=== PATIENT | female | born 1960 | race African-American/Black ===

== ENCOUNTER 2016-08-07 16:48 | Observation (INO) | payer OTHER ==
[~2016-08-07] VITALS: Ht 162.6 cm; Wt 68.2 kg
[~2016-08-07 16:48] MED LIST: ACET325T9 PO; AMLO1TAB78 PO; AMLO1TAB95 PO; ASPI81TA9 PO; ATOR40TA PO; CLOP75TA PO; ESTR0.5T PO; ESTR0.62 PO; ESTR1TAB39 PO; ESTR2TAB PO; HYDR-971 PO; LISI20TA PO; METO25TA4 PO; MULT1CAP15 PO; NEBI10TA3 PO; NEBI5TAB2 PO; SULF1TAB24 PO; TICA90TA PO; [UNRECOGNIZED DRUG - CODE] OD
--- NOTE | 2016-08-07 17:08 | EKG ---
[address] [address] Test Date: 2016-08-07 Test Time: 17:04:03 Pat Name: CAROL JOSHI Department: Room: Gender: F [employer] Supervisor: HALEY : 1960 Requested By: CLEMENT KRAFT Order Number: [id number] Reading MD: J Luis Georges Measurements Intervals [place] Rate: 67 P: 42 IL: 196 QRS: 54 QRSD: 82 T: 68 QT: 388 QTc: 413 Interpretive Statements SINUS RHYTHM Electronically Signed On 08-12-2016 9:35:38 CDT by J Luis Georges
[2016-08-07 17:26] LABS: BASO # 0.1 x10^3/uL (0.0-0.2); BASO % 1 % (0-3); EOS # 0.3 x10^3/uL (0.0-0.7); EOS % 3 % (0-3); HEMATOCRIT 40.6 % (36.0-47.0); HEMOGLOBIN 13.2 g/dL (12.0-15.5); LYMPH # 2.6 x10^3/uL (1.0-4.8); LYMPH % 34 % (24-48); MEAN CORPUSCULAR HEMOGLOBIN 31 pg (25-35); MEAN CORPUSCULAR HGB CONC 33 g/dL (31-37); MEAN CORPUSCULAR VOLUME 94 fL (79-100); MONO # 0.5 x10^3/uL (0.0-1.1); MONO % 6 % (0-9); NEUT # 4.2 x10^3uL (1.8-7.7); NEUT % 55 % (31-73); PLATELET COUNT 276 x10^3/uL (140-400); WHITE BLOOD COUNT 7.6 x10^3/uL (4.0-11.0)
[2016-08-07] MEDS ORDERED: ASPIRIN 81 MG TAB.CHEW PO ONE (17:30)
[2016-08-07 17:46] LABS: ALBUMIN 3.8 g/dL (3.4-5.0); CALCIUM 9.3 mg/dL (8.5-10.1); CREATININE 0.9 mg/dL (0.6-1.0); DIRECT BILIRUBIN 0.1 mg/dL (0.0-0.2); GFR 78.4; POTASSIUM 3.8 mmol/L (3.5-5.1); TOTAL BILIRUBIN 0.4 mg/dL (0.2-1.0); TOTAL PROTEIN 7.3 g/dL (6.4-8.2)
--- NOTE | 2016-08-07 17:51 | PHYS DOC ---
Past History Past Medical History: CAD, Hypertension, Other Past Surgical History: Hysterectomy, Other Smoking: Cigarettes, Cigar, Quit Greater Than 1 Year Alcohol Use: None Drug Use: Marijuana Adult General Chief Complaint Chief Complaint: CHEST PAIN HPI HPI 56-year-old female with a history of 2 stent placements who presents the emergency department today with chest pain. She describes as a pressure that is nonradiating. It is moderate to mild. It did improve with the aspirin she received immediately upon arrival. She denies cough fevers chills. She denies unilateral leg swelling hemoptysis personal or family history of blood clotting disorders. She denies nausea or diaphoresis. Review of systems is negative for fevers cough abdominal pain nausea vomiting. All other review of systems is negative unless otherwise noted in history of present illness. Review of Systems Review of Systems SEE ABOVE. Current Medications Current Medications Current Medications Medications (Trade) Dose Ordered Sig/Jenifer Start Time Stop Time Status Last Admin Dose Admin Aspirin (Children'S Aspirin) 324 mg 1X ONCE 08/07/16 17:30 08/07/16 17:31 DC 08/07/16 17:21 324 MG Allergies Allergies Allergies Coded Allergies Type Severity Reaction Last Updated Verified ticagrelor Allergy Unknown Rash 07/14/14 No Physical Exam Physical Exam Constitutional: Well developed, well nourished, no acute distress, non-toxic appearance. HENT: Normocephalic, atraumatic, bilateral external ears normal, oropharynx moist, no oral exudates, nose normal. [] Eyes: PERRLA, EOMI, conjunctiva normal, no discharge. [] Neck: Normal range of motion, no tenderness, supple, no stridor. Cardiovascular:Heart rate regular rhythm, no murmur Lungs & Thorax: Bilateral breath sounds clear to auscultation [] Abdomen: Bowel sounds normal, soft, no tenderness, no masses, no pulsatile masses. Skin: Warm, dry, no erythema, no rash. [] Back: No tenderness, no CVA tenderness. Extremities: No tenderness, no cyanosis, no clubbing, ROM intact, no edema. [] Neurologic: Alert and oriented X 3, normal motor function, normal sensory function, no focal deficits noted. [] Psychologic: Affect normal, judgement normal, mood normal. [] Current Patient Data Vital Signs Vital Signs Date Time Temp Pulse Resp B/P Pulse Ox O2 Delivery O2 Flow Rate FiO2 08/07/16 17:12 98.2 71 18 100 Room Air Lab Results Laboratory Tests Test 08/07/16 17:10 White Blood Count 7.6x10^3/uL (4.0-11.0) Red Blood Count 4.30x10^6/uL (3.50-5.40) Hemoglobin 13.2g/dL (12.0-15.5) Hematocrit 40.6% (36.0-47.0) Mean Corpuscular Volume 94fL (79-100) Mean Corpuscular Hemoglobin 31pg (25-35) Mean Corpuscular Hemoglobin Concent 33g/dL (31-37) Red Cell Distribution Width 14.0% (11.5-14.5) Platelet Count 276x10^3/uL (140-400) Neutrophils (%) (Auto) 55% (31-73) Lymphocytes (%) (Auto) 34% (24-48) Monocytes (%) (Auto) 6% (0-9) Eosinophils (%) (Auto) 3% (0-3) Basophils (%) (Auto) 1% (0-3) Neutrophils # (Auto) 4.2x10^3uL (1.8-7.7) Lymphocytes # (Auto) 2.6x10^3/uL (1.0-4.8) Monocytes # (Auto) 0.5x10^3/uL (0.0-1.1) Eosinophils # (Auto) 0.3x10^3/uL (0.0-0.7) Basophils # (Auto) 0.1x10^3/uL (0.0-0.2) Troponin I Quantitative < 0.017ng/mL (0-0.055) EKG EKG EKG shows sinus rhythm with a regular rate. ST segments are congruent. Not consistent with acute coronary syndrome. [] Radiology/Procedures Radiology/Procedures [] Course & Med Decision Making Course & Med Decision Making Pertinent Labs and Imaging studies reviewed. (See chart for details) [] 56-year-old female presenting to the emergency department today with chest pain. EKG is not suggestive of ischemic changes. The patient was given aspirin and nitroglycerin in the emergency department. Lipase was elevated just above the reference range of normal. The patient denies nausea vomiting abdominal pain or back pain. Otherwise blood work was obtained. Troponin negative. Given the patient's significant risk of history of stents the patient was then admitted for further evaluation workup and care to Dr. Sandoval. Cecilia Disclaimer Cecilia Disclaimer This chart was dictated in whole or in part using Voice Recognition software in a busy, high-work load, and often noisy Emergency Department environment. It may contain unintended and wholly unrecognized errors or omissions. Departure Departure: Impression: Primary Impression: CHEST PAIN, UNSPECIFIED Disposition: ADMITTED INPATIENT Condition: STABLE Referrals: GUILLAUME MARCANO APRN (PCP) CLEMENT KRAFT MD Aug 07, 2016 17:51
[2016-08-07] MEDS ORDERED: NITROGLYCERIN SUBLINGUAL 0.4 MG BOTTLE OF 25. SL ONE (18:00)
[2016-08-07] MEDS ORDERED: MORPHINE SULFATE 2 MG/ML DISP.SYRIN. IV PRN (18:00)
[2016-08-07] MEDS ORDERED: ONDANSETRON PF 4 MG/2 ML VIAL. IV PRN (18:00)
[2016-08-07 18:17] LABS: AMPHETAMINE/METHAMPHETAMINE NEG (NEG); BARBITURATES NEG (NEG); BENZODIAZEPINES NEG (NEG); CANNABINOIDS POS (NEG); COCAINE NEG (NEG); METHADONE NEG (NEG); OPIATES NEG (NEG); PHENCYCLIDINE NEG (NEG)
[2016-08-07 21:00] VITALS: BP 150/79
[2016-08-07] MEDS ORDERED: RANO500T2 PO (21:22)
[2016-08-07] MEDS ORDERED: OLME40TA PO (21:27)
[2016-08-07] MEDS ORDERED: AMLO10TA2 PO (21:27)
--- NOTE | 2016-08-07 21:56 | ACF ---
Admission Criteria Forms CARDIOLOGY [facility] Clinical Indications for Admission to Inpatient Care ( Place 'X' for any and all applicable criteria): Hospital admission is needed for appropriate care of the patient because of ANY ONE of the following (1): [ ] I. Hemodynamic instability as indicated by ALL of the following (1)(2)(3) (4)(5) [ ]a) Vital signs or other findings not as expected for chronic patient condition or baseline [ ]b) Instability indicated by ANY ONE of the following: [ ]i) Hypotension [ ]ii) Symptomatic Tachycardia unresponsive to treatment ( e.g., analgesia, fluids, sedation as indicated) [ ]iii) Inadequate perfusion indicated by ANY ONE of the following: [ ] 1) Lactic acidosis (> 2 mmol/L) [ ] 2) New abnormal capillary refill (> 3 seconds) [ ] 3) Reduced urine output [ ] 4) New altered mental status [ ]iv) Orthostatic vital sign changes unresponsive to treatment (e.g., fluids) [ ]v) IV inotropic or vasopressor medication required to maintain adequate blood pressure or perfusion [ ] II. Severe heart failure as indicated by ANY ONE of the following(17)(18) [ ]a) Respiratory distress [ ]b) Hypotension [ ]c) Anasarca (refractory to outpatient therapy) [ ]d) Cardiac arrhythmias of immediate concern [ ]e) Myocardial ischemia [ ] III. Cardiac arrhythmias or findings of immediate concern indicated by ANY ONE of the following (19)(20): [ ] a) Heart rhythms that are inherently dangerous or unstable indicated by ANY ONE of the following (21)(22)(23): [ ] i) Resuscitated ventricular fibrillation or cardiac arrest [ ] ii) Ventricular escape rhythm [ ] iii) Sustained ventricular tachycardia (30 seconds or more of ventricular rhythm at greater than 100 beats per minute) [ ] iv) Nonsustained ventricular tachycardia and ANY ONE of the following: [ ] 1) Suspected cardiac ischemia as cause or consequence of ventricular tachycardia [ ] 2) In setting of acute myocarditis [ ] b) Unstable cardiac conduction defects indicated by ANY ONE of the following(23)(24)(25) [ ] i) Type II second-degree atrioventricular block [ ]ii) Third-degree atrioventricular block [ ]iii) New-onset left bundle branch block with suspected myocardial ischemia [ ]c) Any heart rhythm and ANY ONE of the following (21)(22)(26)(27) (28) [ ] i) Continuous long-term ECG monitoring needed (e.g., initiation of drug requiring monitoring for more than 24 hours) [ ] ii) Patient has automatic implanted cardioverter defibrillator that is repeatedly firing, malfunctioning, or in need of immediate adjustment of settings beyond the scope of ambulatory or observation care [ ]d) Heart rhythms of concern due to ANY ONE of the following: [ ] i) Hypotension [ ] ii) Respiratory distress [ ] iii) Association with other significant symptoms (e.g., bradycardia with syncope or ongoing dizziness, supraventricular tachycardia with chest pain (14)(15)(17) [ ] IV. Monitoring for cardiac contusion beyond the scope of observation care needed [A](30)(31)(32) [ ] V. Surgical or device complication (e.g., valve replacement complication , pacemaker dysfunction) (35)(41)(44)(45)(46) [ ] . Inpatient palliative care needed. [B](49) Also use Inpatient Palliative Care Criteria [ ] VII. Nonbacterial thrombotic (marantic) endocarditis (36)(43)(47)(48) [X] VIII. Cardiology condition, symptom, or finding for which emergency and observation care has failed or are not considered appropriate. [ ] IX. Acute valvular disease requiring inpatient as indicated by ANY ONE of the following (41) [ ]a) Acute valvular regurgitation (42) [ ]b) Noninfectious valvulitis (43) [ ]c) Obstructive valve thrombosis [ ]d) Paravalvular leak [ ]e) Other significant valvular disorder remaining after emergency or observation level of care (as appropriate) [ ]X. Pericardial disease requiring inpatient treatment as indicated by ANY ONE of the following (33)(34)(35)(36)(37) [ ]a) Suspected tamponade (38)(39)(40) [ ]b) Hemopericardium [ ]c) Other significant pericardial disorder remaining after emergency or observation level of care (as appropriate) [ ] XI. Cardiac ischemia beyond scope of emergency and observation care. [ ] XII. Hypertension requiring inpatient treatment as indicated by ANY ONE of the following (6)(7)(8) [ ]a) SBP greater than 220 mm Hg or DBP greater than 120 mmHg despite treatment [ ]b) SBP greater than 140 mm Hg or DBP greater than 100 mm Hg with evidence of acute end organ damage as indicated by ANY ONE of the following [ ] i) Encephalopathy [ ] ii) Acute renal failure as indicated by new onset of ANY ONE of the following (9)(10)(11)(12)(13) [ ]1) 3-fold rise in serum creatinine from baseline [ ]2) Serum creatinine greater than 4 mg/dL ( 354 micromoles/L) with acute rise greater than 0.5 mg/dL (44.2 micromoles/L) [ ]3) Reduction of more than 75% in estimated glomerular filtration rate from baseline [ ]4) Estimated glomerular filtration rate less than 35 mL/min/1.73m2 (0.59 mL/sec/1.73m2) in child up to 18 years of age [ ]5) Cessation of urine output indicated by ALL of the following [ ]A. Adequate volume status [ ]B. Inadequate urine output as indicated by ANY ONE of the following [ ]a. Urine output less than 0.3 mL/kg/hr for 24 hours [ ]b. Anuria (urine output less than 0.1 mL/kg/hr) for 12 hours [ ] iii) Aortic dissection [ ] iv) Myocardial Ischemia [ ] v) Left ventricular heart failure [ ]vi) Retinal Hemorrhage [ ]vii) Other significant finding [ ]c) Hypertension in child requiring inpatient treatment as indicated by ALL of the following(14)(15)(16) [ ] i) Outpatient treatment not effective, not available, or not appropriate [ ]ii) SBP or DBP greater than 95th percentile for age [ ]iii) Evidence of acute end organ damage as indicated by ANY ONE of the following [ ]1) Altered mental status [ ]2) Acute renal failure as indicated by new onset of ANY ONE of the following(9)(10)(11)(12)(13) [ ]A. 3-fold rise in serum creatinine from baseline [ ]B. Serum creatinine greater than 4 mg/dL (354 micromoles/L) with acute rise greater than 0.5 mg/dL (44.2 micromoles/L) [ ]C. Reduction of more than 75% in estimated glomerular filtration rate from baseline [ ]D. Estimated glomerular filtration rate less than 35 mL/min/1.73m2 (0.59 mL/sec/1.73m2) in child up to 18 years of age [ ]E. Cessation of urine output indicated by ALL of the following [ ]a. Adequate volume status [ ]b. Inadequate urine output as indicated by ANY ONE of the following [ ]i) Urine output less than 0.3 mL/kg/hr for 24 hours [ ]ii) Anuria ( urine output less than 0.1 mL/kg/hr) for 12 hours [ ]3) Severe headache [ ]4) Visual disturbance [ ]5) Retinal hemorrhage [ ]6) Other significant finding [ ]XIII. Complications of transplanted heart indicated by ANY ONE of the following(61): [ ]a) Acute graft rejection requiring inpatient management (eg, intravenous immunosuppression)(62)(63) [ ]b) Acute graft heart failure indicated by ANY ONE of the following(64): [ ]i) Hemodynamic instability [ ]ii) Cardiac arrhythmias of immediate concern [ ]iii) Pulmonary edema that is very severe (eg, mechanical ventilation needed, imminent or likely, need for 100% oxygen to keep oxygen saturation above 90%) [ ]iv) Pulmonary edema that is persistent as indicated by ALL of the following: [ ]1) New need for oxygen therapy to keep oxygen saturation above 90% (or increased FiO2 need from baseline) [ ]2) Has not improved sufficiently with emergency department or observation care IV diuretics or other heart failure treatments[E] [ ]v) Altered mental status that is severe or persistent [ ]vi) Increased creatinine (new on laboratory test) with reduction of more than 50% in estimated glomerular filtration rate from baseline [ ]vii) Progressively (ongoing) rising creatinine (known from past laboratory test) with reduction of more than 25% in estimated glomerular filtration rate from baseline [ ]viii) Acute renal failure [ ]ix) Acute peripheral ischemia (eg, examination shows pulseless, cool, mottled, or cyanotic extremity) [ ]x) Pulmonary artery catheter monitoring needed [ ]xi) Other sign or symptom of heart failure requiring inpatient treatment (ie, too severe or not responsive to outpatient and observation care treatment) [ ]c) Infection requiring inpatient management (eg, Hemodynamic instability, need for intravenous antimicrobial treatment)(66)(67)(68)(69)(70) [ ]d) Cardiac allograft vasculopathy requiring inpatient management ( eg evidence of cardiac ischemia)(71) [ ]e) Other complication of transplanted heart (eg, stroke, severe pulmonary hypertension, severe valvular dysfunction) requiring inpatient management(72) The original [facility] content created by [facility] has been revised. The portions of the content which have been revised are identified through the use of italic text or in bold, and [facility] has neither reviewed nor approved the modified material. All other unmodified content is copyright [facility]. Please see references footnoted in the original [facility] edition 2016 Admission Criteria Met?: Yes ASHLEY MARQUEZ Aug 07, 2016 21:56
[2016-08-07 22:40] VITALS: BP 134/76
[2016-08-08 05:32] LABS: BASO # 0.1 x10^3/uL (0.0-0.2); BASO % 1 % (0-3); EOS # 0.3 x10^3/uL (0.0-0.7); EOS % 4 % (0-3); HEMATOCRIT 43.3 % (36.0-47.0); LYMPH # 2.7 x10^3/uL (1.0-4.8); LYMPH % 41 % (24-48); MEAN CORPUSCULAR HEMOGLOBIN 31 pg (25-35); MEAN CORPUSCULAR HGB CONC 33 g/dL (31-37); MEAN CORPUSCULAR VOLUME 95 fL (79-100); MONO # 0.5 x10^3/uL (0.0-1.1); MONO % 7 % (0-9); NEUT # 3.2 x10^3uL (1.8-7.7); NEUT % 48 % (31-73); PLATELET COUNT 269 x10^3/uL (140-400); RED BLOOD COUNT 4.58 x10^6/uL (3.50-5.40); RED CELL DISTRIBUTION WIDTH 13.9 % (11.5-14.5); WHITE BLOOD COUNT 6.7 x10^3/uL (4.0-11.0)
[2016-08-08 05:42] LABS: CALCIUM 8.9 mg/dL (8.5-10.1); CREATININE 0.8 mg/dL (0.6-1.0); GFR 89.8; POTASSIUM 3.7 mmol/L (3.5-5.1)
[2016-08-08 05:55] VITALS: BP 136/76
--- NOTE | 2016-08-08 07:15 | RAD ---
Exam: AP portable chest. History: Chest pain. Comparison: 03/17/2015. Findings: The heart and mediastinal structures are within normal limits for size. Lungs are without infiltrate. No pneumothorax or pleural effusion is appreciated. Aortic atherosclerosis is seen. Left greater than right shoulder degeneration is noted. Impression: 1. No acute cardiopulmonary process.
[2016-08-08] MEDS ORDERED: LOSARTAN 50 MG TABLET. PO SCH (09:00)
[2016-08-08] MEDS ORDERED: CLOPIDOGREL BISULFATE 75 MG TABLET PO SCH (09:00)
[2016-08-08] MEDS ORDERED: AMLODIPINE BESYLATE 10 MG TABLET PO SCH (09:00)
[2016-08-08] MEDS ORDERED: METOPROLOL TART IMMED RELEASE 50 MG TABLET PO SCH (09:00)
[2016-08-08] MEDS ORDERED: RANOLAZINE 500 MG TAB.ER.12H PO SCH (09:00)
[2016-08-08] MEDS ORDERED: ASPIRIN ENTERIC COATED 81 MG TABLET.DR. PO SCH (09:00)
--- NOTE | 2016-08-08 09:17 | PDOC2 ---
CONSULT Date of Admission DATE: 08/08/16 TIME: 09:06 Reason for Consult: chest pain Problem List Problems Medical Problems: (1) R07.9 Status: Acute History of Present Illness Ms Jaramillo is a 54 year old female with a history of coronary artery disease with prior stents to LAD and LCX. Her last cardiac cath in September of last year revealed no significant stenosis and widely patent stents. She had a negative nuclear stress test in January of last year. She has additional history of resistant hypertension, hyperlipidemia and lupus. She presents with left sided chest pressure that started about 7am yesterday. She reports the pain is non radiating, non exertional, lasted all day and was constant. She got some relief with aspirin but no resolution. No change with exertion, deep inspiration, position changes. She denies any recent illness, fever, chills or cough. She does report chest wall tenderness noted last night in ED when palpated. She reports resolution of discomfort last night after NTG in the ED. She reports associated lightheadedness and nausea but denies dyspnea or diaphoresis. She reports lightheadedness occurred while sitting but did worsen on standing. She denies syncope. She denies any congestive symptoms, edema or problems with functional capacity. Past Medical History 01/23/16 MPI Conclusion 1. No evidence of stress induced EKG changes. 2. Normal myocardial perfusion noted at stress/rest. 3. Normal EF at > 65% 4. Low risk study 5. Subdiaphragmatic artifact noted on rest images. 10/07/13 cardiac cath FINDINGS: 1. Hemodynamics: Slightly elevated left ventricular end-diastolic pressure of 18 mmHg. No pullback gradient across the aortic valve. 2. Left ventriculography: Normal left ventricle systolic function with ejection fraction estimated at 65-70%. No significant mitral regurgitation seen. 3. Coronary angiography: A). The left main coronary artery arose from the left sinus of Valsalva, gave rise to the left anterior descending and the left circumflex arteries and did not show any significant stenosis. B). The left anterior descending artery showed widely patent previously placed stent in the proximal to midsegment. C). The left circumflex artery was a large caliber vessel, was dominant and showed a widely patent previously placed stent in the mid-distal segment. D). The right coronary artery was a small and nondominant vessel that did not show any significant stenosis. Conclusion 1. No significant coronary artery stenosis with widely patent previously placed stents in the left anterior descending and left circumflex arteries. 2. Normal left ventricle systolic function with ejection fraction estimated at 65-70%. 3. No mitral regurgitation. No aortic stenosis. Past Medical History coronary artery disease, hypertension, hyperlipidemia, lupus erythematosus Past Surgical History Status post hysterectomy and bilateral salpingo-oophorectomy. Status post left ear surgery. Status post section. Family History premature coronary disease in mother Social History prior smoker, no ETOH, occasional marijuana use Current Medications Current Medications Aspirin (Children'S Aspirin) 324 mg 1X ONCE PO Last administered on 08/07/16 17:21; Start 08/07/16 at 17:30; Stop 08/07/16 at 17:31; Status DC Nitroglycerin (Nitrostat) 0.4 mg 1X ONCE SL Last administered on 08/07/16 21: 57; Start 08/07/16 at 18:00; Stop 08/07/16 at 18:01; Status DC Ondansetron HCl (Zofran) 4 mg PRN Q4HRS PRN IV NAUSEA/VOMITING; Start 08/07/16 at 18:00; Stop 08/08/16 at 17:59 Morphine Sulfate (Morphine 2mg Syringe) 2 mg PRN Q2HR PRN IV PAIN; Start at 18:00; Stop 08/08/16 at 17:59 Amlodipine Besylate (Norvasc) 10 mg DAILY PO ; Start 08/08/16 at 09:00 Aspirin (Aspirin Enteric Coated) 81 mg DAILY PO ; Start 08/08/16 at 09:00 Clopidogrel Bisulfate (Plavix) 75 mg DAILY PO ; Start 08/08/16 at 09:00 Ranolazine (Ranexa) 500 mg DAILY PO ; Start 08/08/16 at 09:00 Metoprolol Tartrate (Lopressor) 50 mg BID PO ; Start 08/08/16 at 09:00 Losartan Potassium (Cozaar) 100 mg DAILY PO ; Start 08/08/16 at 09:00 Active Scripts Active Reported Benicar (Olmesartan Medoxomil) 40 Mg Tablet 40 Mg PO DAILY LAST DOSE GIVEN: DATE: TIME: NEXT DOSE DUE: DATE: TIME: Amlodipine Besylate 10 Mg Tablet 10 Mg PO DAILY LAST DOSE GIVEN: DATE: TIME: NEXT DOSE DUE: DATE: TIME: Ranexa (Ranolazine) 500 Mg Tab.er.12h 500 Mg PO DAILY LAST DOSE GIVEN: DATE: TIME: NEXT DOSE DUE: DATE: TIME: Bystolic (Nebivolol Hcl) 10 Mg Tablet 10 Mg PO DAILY LAST DOSE GIVEN: DATE: TIME: NEXT DOSE DUE: DATE: TIME: Clopidogrel (Clopidogrel Bisulfate) 75 Mg Tablet 75 Mg PO DAILY LAST DOSE GIVEN: DATE: TIME: NEXT DOSE DUE: DATE: TIME: Aspirin Ec (Aspirin) 81 Mg Tablet.dr 81 Mg PO DAILY LAST DOSE GIVEN: DATE: TIME: NEXT DOSE DUE: DATE: TIME: Allergies: Coded Allergies: ticagrelor (Unverified Allergy, Unknown, Rash, 07/14/14) Review of System as per HPI or negative General: Alert, Oriented X3, Cooperative, No acute distress HEENT: Atraumatic, EOMI, Mucous membr. moist/pink Lungs: Clear to auscultation, Normal air movement Heart: Regular rate, Normal S1, Normal S2, Other (no significant murmurs, no gallops, clicks or rubs) Abdomen: Normal bowel sounds, Soft, No tenderness Extremities: No clubbing, No cyanosis, No edema, Normal pulses Neuro: Normal speech, Strength at 5/5 X4 ext Psych/Mental Status: Mental status NL, Mood NL VITALS Vital Signs Date Time Temp Pulse Resp B/P Pulse Ox O2 Delivery O2 Flow Rate FiO2 08/08/16 05:55 98.3 66 18 136/76 97 Room Air Labs Laboratory Tests Test 08/07/16 17:10 08/07/16 17:35 08/07/16 22:45 08/08/16 05:15 White Blood Count 7.6x10^3/uL (4.0-11.0) 6.7x10^3/uL (4.0-11.0) Red Blood Count 4.30x10^6/uL (3.50-5.40) 4.58x10^6/uL (3.50-5.40) Hemoglobin 13.2g/dL (12.0-15.5) 14.0g/dL (12.0-15.5) Hematocrit 40.6% (36.0-47.0) 43.3% (36.0-47.0) Mean Corpuscular Volume 94fL (79-100) 95fL (79-100) Mean Corpuscular Hemoglobin 31pg (25-35) 31pg (25-35) Mean Corpuscular Hemoglobin Concent 33g/dL (31-37) 33g/dL (31-37) Red Cell Distribution Width 14.0% (11.5-14.5) 13.9% (11.5-14.5) Platelet Count 276x10^3/uL (140-400) 269x10^3/uL (140-400) Neutrophils (%) (Auto) 55% (31-73) 48% (31-73) Lymphocytes (%) (Auto) 34% (24-48) 41% (24-48) Monocytes (%) (Auto) 6% (0-9) 7% (0-9) Eosinophils (%) (Auto) 3% (0-3) 4% (0-3) Basophils (%) (Auto) 1% (0-3) 1% (0-3) Neutrophils # (Auto) 4.2x10^3uL (1.8-7.7) 3.2x10^3uL (1.8-7.7) Lymphocytes # (Auto) 2.6x10^3/uL (1.0-4.8) 2.7x10^3/uL (1.0-4.8) Monocytes # (Auto) 0.5x10^3/uL (0.0-1.1) 0.5x10^3/uL (0.0-1.1) Eosinophils # (Auto) 0.3x10^3/uL (0.0-0.7) 0.3x10^3/uL (0.0-0.7) Basophils # (Auto) 0.1x10^3/uL (0.0-0.2) 0.1x10^3/uL (0.0-0.2) Sodium Level 143mmol/L (136-145) 141mmol/L (136-145) Potassium Level 3.8mmol/L (3.5-5.1) 3.7mmol/L (3.5-5.1) Chloride Level 106mmol/L (98-107) 106mmol/L (98-107) Carbon Dioxide Level 29mmol/L (21-32) 26mmol/L (21-32) Anion Gap 8 (6-14) 9 (6-14) Blood Urea Nitrogen 14mg/dL (7-20) 11mg/dL (7-20) Creatinine 0.9mg/dL (0.6-1.0) 0.8mg/dL (0.6-1.0) Estimated GFR (Cockcroft-Gault) 78.4 89.8 Glucose Level 97mg/dL (70-99) 108mg/dL (70-99) Calcium Level 9.3mg/dL (8.5-10.1) 8.9mg/dL (8.5-10.1) Total Bilirubin 0.4mg/dL (0.2-1.0) Direct Bilirubin 0.1mg/dL (0.0-0.2) Aspartate Amino Transf (AST/SGOT) 13U/L (15-37) Alanine Aminotransferase (ALT/SGPT) 16U/L (14-59) Alkaline Phosphatase 92U/L (46-116) Troponin I Quantitative < 0.017ng/mL (0-0.055) < 0.017ng/mL (0-0.055) < 0.017ng/mL (0-0.055) AC-Mmv-Q-Type Natriuretic Peptide 68pg/mL (0-124) Total Protein 7.3g/dL (6.4-8.2) Albumin 3.8g/dL (3.4-5.0) Lipase 467U/L (73-393) 231U/L (73-393) Urine Opiates Screen Neg (NEG) Urine Methadone Screen Neg (NEG) Urine Barbiturates Neg (NEG) Urine Phencyclidine Screen Neg (NEG) Urine Amphetamine/Methamphetamine Neg (NEG) Urine Benzodiazepines Screen Neg (NEG) Urine Cocaine Screen Neg (NEG) Urine Cannabinoids Screen Pos (NEG) Urine Ethyl Alcohol Neg (NEG) Images EKG - sinus rhythm, delayed R wave progression, non specific abn. CXR - no acute disease Assessment/Plan 1. Prolonged chest pain, atypical with normal cardiac enzymes - continue medical therapy. will check echo for LV function and if no significant changes , could follow up outpatient. 2. CAD with prior PCI/Stent to LAD - no restenosis by cath in 2013. normal MPI in January 2016. 3. resistant hypertension - controlled on current medical therapy. resume home medications. Problems: ROSI BROOKS PUBLIC HEALTH ASSISTANT Aug 08, 2016 09:17
[2016-08-08 10:32] VITALS: BP 134/85
[2016-08-08 14:28] VITALS: BP 138/89
--- NOTE | 2016-08-08 15:50 | CARD ---
APPROVED REPORT EXAM: Two-dimensional and M-mode echocardiogram with Doppler and color Doppler. Other Information Quality : GoodHR: 65bpm Rhythm : NSR INDICATION Cardiac Disease: CAD Chest Pain 2D DIMENSIONS RVDd2.6 (2.9-3.5cm)Left Atrium(2D)3.8 (1.6-4.0cm) IVSd1.3 (0.7-1.1cm)Aortic Root(2D)2.8 (2.0-3.7cm) LVDd4.5 (3.9-5.9cm)LVOT Diameter2.2 (1.8-2.4cm) PWd1.4 (0.7-1.1cm)LVDs2.9 (2.5-4.0cm) FS (%) 34.7 %SV59.4 ml LVEF(%)64.1 (>50%) Aortic Valve AoV Peak Festus.118.3cm/sAoV VTI24.7cm AO Peak GR.5.6mmHgLVOT Peak Festus.98.5cm/s LVOT VTI 21.10cmAO Mean GR.3mmHg AVELINO (VMAX)3.81wk4OAT (VTI)3.38cm2 Mitral Valve MV E Dztlmecd15.4cm/sMV E Peak Gr.4mmHg MV DECEL SORM236ywBE A Hwvbhznm44.2cm/s MV E Mean Gr.2mmHgE/A Ratio0.8 MV A Sbhepjek922mm Pulmonary Valve PV Peak Iwhxnkfh81.6cm/sPV Peak Grad.3mmHg Tricuspid Valve TR P. Xavutgiw985sk/sTR Peak Gr.25mmHg Pulmonary Vein S1 Tmnomfrh43.1cm/sD2 Ubyhkofj43.8cm/s LEFT VENTRICLE The left ventricle is normal size. There is moderate concentric left ventricular hypertrophy. The lef t ventricular systolic function is normal and the ejection fraction is within normal range. The Eject ion Fraction is 60-65%. There is normal LV segmental wall motion. Transmitral Doppler flow pattern is Grade I-abnormal relaxation pattern. RIGHT VENTRICLE The right ventricle is normal size. There is normal right ventricular wall thickness. The right ventr icular systolic function is normal. ATRIA The left atrium is mildly dilated. The right atrium size is normal. The interatrial septum is intact with no evidence for an atrial septal defect or patent foramen ovale as noted on 2-D or Doppler imagi ng. AORTIC VALVE The aortic valve is normal in structure and function. Doppler and Color Flow revealed no significant aortic regurgitation. There is no significant aortic valvular stenosis. MITRAL VALVE There is no evidence of mitral valve prolapse. There is no mitral valve stenosis. Doppler and Color F low revealed trace mitral regurgitation. TRICUSPID VALVE Doppler and Color Flow revealed mild tricuspid regurgitation. The pulmonary artery systolic pressure is estimated at 28 mmHg. There is no pulmonary hypertension. PULMONIC VALVE Doppler and Color Flow revealed no pulmonic valvular regurgitation. There is no pulmonic valvular neyda nosis. GREAT VESSELS The aortic root is normal in size. The ascending aorta is normal in size. The pulmonary artery is nor mal. The IVC is normal in size and collapses >50% with inspiration. PERICARDIAL EFFUSION There is no evidence of significant pericardial effusion. Critical Notification Critical Value: No <Conclusion> The left ventricular systolic function is normal and the ejection fraction is within normal range. Th e Ejection Fraction is 60-65%. There is normal LV segmental wall motion.
--- NOTE | 2016-08-08 16:08 | HP ---
ADMIT DATE: 08/08/2016 HISTORY OF PRESENT ILLNESS: The patient is a 56-year-old -[place] female patient, who basically came to the Emergency Room complaining of chest pain. She described as a pressure that is nonradiating, mild to moderate, it improves with aspirin. She received immediately upon arrival. She denied any cough, fever, chills. She denied any unilateral leg swelling, hemoptysis. family history of blood clots. Although, she denied any nausea or vomiting. The patient is known to have coronary artery disease with stent deployment and has had her first cardiac enzyme done was normal and she was admitted to do 2 more sets of cardiac enzymes, check her fasting lipid profile and consult the pin inserter. PAST MEDICAL HISTORY: Significant for hypertension, coronary artery disease status post PTCA and stent deployment, hyperlipidemia. PAST SURGICAL HISTORY: Significant for PTCA and stent deployment, total abdominal hysterectomy, bilateral salpingo-oophorectomy, left ear surgery and esophagogastroduodenoscopy versus bronchoscopy. ALLERGIES: She is allergic to TICAGRELOR. MEDICATIONS: She is currently on following medications: She is on amlodipine besylate 10 mg once a day, aspirin 81 mg once a day, Plavix 75 mg once a day, Bystolic 10 mg once a day, olmesartan medoxomil 40 mg once a day and Ranexa 500 mg daily. FAMILY HISTORY: She has 2 brothers, both have hypertension. She has also 5 sisters and seems that hypertension is at least 2 sisters have that and one has schizophrenia. Her father at age of 76 because of head and neck cancer as well as prostate cancer. Mother had end-stage renal disease and at the age of 74 when she quit hemodialysis. SOCIAL HISTORY: She is , has 1 daughter. She quit smoking in 06/04/2016. She drinks alcohol very occasionally, use marijuana more frequently. She works as a early childhood education worker at . REVIEW OF SYSTEMS: The patient denied any blurring of vision, cataract, glaucoma or macular degeneration. Did have problem with her left ear. Denied any nosebleeds, stuffy nose or postnasal drip. Denied any sore throat, sore tongue, toothache, hoarseness of voice or difficulty swallowing. Denied any hematemesis, melena or hematochezia. Denied any dysuria, frequency or hematuria. Did complain of chest pain. Denied any shortness of breath, orthopnea, paroxysmal nocturnal dyspnea. Denied any cough, phlegm or hemoptysis. Denied any chills, rigors or fever. PHYSICAL EXAMINATION: GENERAL: On arrival to the Emergency Room, she looked well and was clearly in no apparent respiratory distress. No pallor, jaundice, cyanosis or thyromegaly. No jugular venous distention. No limb edema. VITAL SIGNS: Her heart rate was 71, blood pressure was , temperature was 98.2, respiratory rate was 18 and oxygen saturation was 100% on room air. HEAD, EYES, EAR, NOSE AND THROAT: Showed normocephalic, atraumatic. NECK: Supple. HEART: Showed normal first and second heart sounds with no gallop, rub or murmur. CHEST: Clear to auscultation. No crepitation or rhonchi. ABDOMEN: Distended, soft, nontender. NEUROLOGIC: She is awake, alert, responding appropriately. Her cranial nerves intact. EXTREMITIES: She moves extremities without difficulty. LABORATORY DATA: Showed a serum sodium 143, potassium 3.8, chloride 106, bicarbonate 29, anion gap of 8, BUN 14, creatinine 0.9, estimated GFR was 78 mL per minute. Her glucose was 97. Calcium was 9.3. Total bilirubin, AST, ALT, alkaline phosphatase were normal. Her first set of cardiac enzymes show troponin I to be less than 0.017. Total protein was 7.3, albumin 3.8. Her serum lipase was high at 467. Her toxic screen was essentially negative. She apparently has had an EKG, which showed that she was in sinus rhythm with a regular rate, ST segment are congruent, not consistent with acute coronary syndrome. PLAN: The patient was admitted to do 2 more sets of cardiac enzymes, check her fasting lipid profile, consult the pin inserter. GISELE HUTCHINS MD DR: ALF/stanley JOB#: [id number] / [id number]
--- NOTE | 2016-08-08 18:59 | DS ---
DATE OF DISCHARGE: 08/08/2016 HOSPITAL COURSE: The patient was admitted yesterday with chest pain and has had 3 sets of cardiac enzymes that were negative. She was seen in consultation by the Cardiology team and has had an echocardiogram that was done; however, they recommended the patient can safely be discharged to be followed in their office as an outpatient. PHYSICAL EXAMINATION: GENERAL: When I saw her this afternoon, she looked well and was clearly in no apparent respiratory distress, pale, but no jaundice, cyanosis or thyromegaly. No jugular venous distention. No limb edema. VITAL SIGNS: Her heart rate was 68, blood pressure 138/89, temperature was 98.3, respiratory rate 20 and oxygen saturation was 98%. The rest of clinical examination is unremarkable. LABORATORY DATA: This morning showed a serum sodium 141, potassium 3.7, chloride 106, bicarbonate 26, anion gap of 9, BUN 11, creatinine 0.8, estimated GFR was 90 mL per minute. Her glucose was 108. Calcium was 8.9. Her serum triglycerides were 141. Total cholesterol was 227, LDL cholesterol was 110, VLDL cholesterol was 28 and HDL cholesterol was 89 and ratio was 2. Her first lipase was 467. It was repeated this morning. It was 231. The patient denied any abdominal pain. FINAL DISCHARGE DIAGNOSES: Chest pain, atypical with normal cardiac enzymes, to continue medical treatment; coronary artery disease with prior PTCA and stent deployment, she had a normal ____ in 01/2016; hypertension, well controlled on current therapy, asymptomatic; acute pancreatitis, resolved. Her serum lipase is down to 230. GISELE HUTCHINS MD DR: ALF/stanley JOB#: [id number] / [id number]
== END 2016-08-08 15:35 | disposition home or self-care (01) ==
LOC: ER 16:48 → 1 SOUTH 18:39
PROVIDERS: ADMIT Internal Medicine; ATTEND Internal Medicine
DX: R07.89 Other chest pain (principal); I25.10 Atherosclerotic heart disease of native coronary artery without angina pectoris; I10 Essential (primary) hypertension; E78.5 Hyperlipidemia, unspecified; F12.90 Cannabis use, unspecified, uncomplicated; L93.0 Discoid lupus erythematosus; Z95.5 Presence of coronary angioplasty implant and graft; Z87.891 Personal history of nicotine dependence; Z90.710 Acquired absence of both cervix and uterus; Z81.8 Family history of other mental and behavioral disorders; Z82.49 Family history of ischemic heart disease and other diseases of the circulatory system
CPT/HCPCS: 36415; 71010; 80048; 80061; 80076; 83690; 83880; 84484; 85027; 93005; 93306; 99285; G0378; G0481; G0379

== ENCOUNTER 2017-01-22 07:33 | Observation (INO) | payer OTHER ==
[~2017-01-22] VITALS: Ht 170.2 cm; Wt 66.2 kg
[~2017-01-22 07:33] MED LIST changes: +AMLO10TA2 PO; -AMLO1TAB78 PO; +AMLO1TAB97 PO; +ASPI-612 PO; -ASPI81TA9 PO; +OLME40TA12 PO; +RANO500T2 PO
--- NOTE | 2017-01-22 07:40 | PHYS DOC ---
Past History Past Medical History: CAD, Hypertension, Other Past Surgical History: Hysterectomy, Other Smoking: Cigarettes, Cigar, Quit Greater Than 1 Year Alcohol Use: None Drug Use: Marijuana Adult General Chief Complaint Chief Complaint: presyncope HPI HPI Patient is a 56 year old [place] female who presents with dizziness/ presyncope. 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 She states she felt dizzy but did not have any vertigo type symptoms. She denies any nausea, vomiting, abdominal or chest discomfort. She denies any chest pain or shortness of breath. She states she has a history of coronary disease and had cardiac stents placed 4 years ago and takes Plavix. Which she had her stents placed she states she had chest pains at that time and she denies any chest discomfort today. She does have a previous smoking history but stopped in May 2016. Review of Systems Review of Systems Constitutional: Denies fever or chills [] Eyes: Denies change in visual acuity, redness, or eye pain [] HENT: Denies nasal congestion or sore throat [] Respiratory: Denies cough or shortness of breath [] Cardiovascular: No additional information not addressed in HPI [] GI: Denies abdominal pain, nausea, vomiting, bloody stools or diarrhea [] : Denies dysuria or hematuria [] Musculoskeletal: Denies back pain or joint pain [] Integument: Denies rash or skin lesions [] Neurologic: Denies headache, focal weakness or sensory changes [] Endocrine: Denies polyuria or polydipsia [] Allergies Allergies Allergies Coded Allergies Type Severity Reaction Last Updated Verified ticagrelor Allergy Unknown Rash 07/14/14 No Physical Exam Physical Exam Constitutional: Well developed, well nourished, no acute distress, non-toxic appearance. [] HENT: Normocephalic, atraumatic, bilateral external ears normal, oropharynx moist, no oral exudates, nose normal. [] Eyes: PERRLA, EOMI, conjunctiva normal, no discharge. [] Neck: Normal range of motion, no tenderness, supple, no stridor. [] Cardiovascular:Heart rate regular rhythm, no murmur [] Lungs & Thorax: Bilateral breath sounds clear to auscultation [] Abdomen: Bowel sounds normal, soft, no tenderness, no masses, no pulsatile masses. [] Skin: Warm, dry, no erythema, no rash. [] Back: No tenderness, no CVA tenderness. [] Extremities: No tenderness, no cyanosis, no clubbing, ROM intact, no edema. [] Neurologic: Alert and oriented X 3, normal motor function, normal sensory function, no focal deficits noted. [] Psychologic: Affect normal, judgement normal, mood normal. [] EKG EKG EKG shows sinus rhythm 3-[address] elevations, T-wave inversions noted in aVL, normal axis, QTC 460 ms, as interpreted by me. Radiology/Procedures Radiology/[place] [address] IMAGING REPORT Signed PATIENT: CAROL JOSHI ACCOUNT: [id number] : 1960 LOCATION: ER AGE: 56 SEX: F EXAM STATUS: REG ER ORD. PHYSICIAN: RAMIREZ ZIMMERMAN MD REASON: syncope PROCEDURE: PORTABLE CHEST 1V Portable chest, 01/22/2017: History: Syncope Comparison is made to a study from 08/07/2016. The left ventricle is mildly prominent. The pulmonary vascularity is normal. No pulmonary infiltrates are seen. There is no evidence of pleural fluid. Scattered degenerative changes are present in the spine. There is moderate arthritic change at the left shoulder. IMPRESSION: No acute cardiopulmonary abnormality is detected. DICTATED AND SIGNED BY: KAREN DAILEY MD DATE: 01/22/17 0807 CC: RAMIREZ ZIMMERMAN MD; GUILLAUME MARCANO APRN ~ Impressions: Presyncope/dizziness Coronary artery disease with stents Hypertension Marijuana abuse Course & Med Decision Making Course & Med Decision Making Pertinent Labs and Imaging studies reviewed. (See chart for details) Patient presents for dizziness/presyncope. Neuro exam is nonacute. She does not have any chest pain or other concerning symptoms. Her EKG, chest x-ray and labs all nonacute at this time. She does have a history of stents in the past. She received 1 L fluid which helped slightly but she still feels dizzy. We'll admit and repeat cardiac enzymes. Spoke with Dr. Sandoval who accepts the patient for admission at this time. Interim orders have been written. Dragon Disclaimer Dragon Disclaimer This chart was dictated in whole or in part using Voice Recognition software in a busy, high-work load, and often noisy Emergency Department environment. It may contain unintended and wholly unrecognized errors or omissions. Departure Departure: Impression: Primary Impression: Pre-syncope Disposition: ADMITTED INPATIENT Admitting Physician: Doris Sandoval Condition: STABLE Referrals: GUILLAUME MARCANO APRN (PCP) RAMIREZ ZIMMERMAN MD Jan 22, 2017 07:40
--- NOTE | 2017-01-22 07:51 | EKG ---
[address] [address] Test Date: 2017-01-22 Test Time: 07:46:22 Pat Name: CAROL JOSHI Department: Room: Gender: F Gaming Floor Supervisor: MONIQUE : 1960 Requested By: RAMIREZ ZIMMERMAN Order Number: [id number] Reading MD: Measurements Intervals [place] Rate: 63 P: 51 NM: 194 QRS: 68 QRSD: 78 T: 71 QT: 404 QTc: 416 Interpretive Statements SINUS RHYTHM NO SPECIFIC ECG ABNORMALITIES RI6.01 Compared to ECG 08/07/2016 17:04:03 No significant changes
--- NOTE | 2017-01-22 08:11 | RAD ---
Portable chest, 01/22/2017: History: Syncope Comparison is made to a study from 08/07/2016. The left ventricle is mildly prominent. The pulmonary vascularity is normal. No pulmonary infiltrates are seen. There is no evidence of pleural fluid. Scattered degenerative changes are present in the spine. There is moderate arthritic change at the left shoulder. IMPRESSION: No acute cardiopulmonary abnormality is detected.
[2017-01-22] MEDS ORDERED: IV NORMAL SALINE 1,000ML 1,000 ML IV ONE (08:15)
[2017-01-22 08:18] LABS: BARBITURATES NEG (NEG); BENZODIAZEPINES NEG (NEG); CANNABINOIDS POS (NEG); COCAINE NEG (NEG); METHADONE NEG (NEG); OPIATES NEG (NEG); PHENCYCLIDINE NEG (NEG)
[2017-01-22 08:19] LABS: CLARITY,URINE CLEAR; COLOR,URINE YELLOW
[2017-01-22 08:20] LABS: BACTERIA,URINE 0 /HPF (0-FEW); BILIRUBIN,URINE NEG (NEG); GLUCOSE,URINE NEG (NEG); NITRITE,URINE NEG (NEG); RBC,URINE 0 /HPF (0-2); SQUAMOUS EPITHELIAL CELL,UR OCC /LPF; UROBILINOGEN,URINE 0.2 mg/dL (0.2 mg/dL); WBC,URINE RARE /HPF (0-4)
[2017-01-22 08:21] LABS: AMPHETAMINE/METHAMPHETAMINE NEG (NEG)
[2017-01-22 08:24] LABS: BASO % 1 % (0-3); EOS # 0.2 x10^3/uL (0.0-0.7); EOS % 3 % (0-3); HEMATOCRIT 39.1 % (36.0-47.0); HEMOGLOBIN 13.2 g/dL (12.0-15.5); LYMPH % 32 % (24-48); MEAN CORPUSCULAR HEMOGLOBIN 31 pg (25-35); MEAN CORPUSCULAR HGB CONC 34 g/dL (31-37); MEAN CORPUSCULAR VOLUME 92 fL (79-100); MONO # 0.4 x10^3/uL (0.0-1.1); MONO % 6 % (0-9); NEUT # 3.7 x10^3uL (1.8-7.7); NEUT % 59 % (31-73); PLATELET COUNT 292 x10^3/uL (140-400); RED BLOOD COUNT 4.24 x10^6/uL (3.50-5.40); RED CELL DISTRIBUTION WIDTH 13.3 % (11.5-14.5); WHITE BLOOD COUNT 6.4 x10^3/uL (4.0-11.0)
[2017-01-22 08:35] LABS: PREG TEST PT QUAL NEGATIVE (NEG)
[2017-01-22 09:07] LABS: ALBUMIN 3.8 g/dL (3.4-5.0); ALK PHOS 90 U/L (46-116); ALT (SGPT) 20 U/L (14-59); ANION GAP 5 (6-14); AST (SGOT) 17 U/L (15-37); BLOOD UREA NITROGEN 11 mg/dL (7-20); CALCIUM 8.9 mg/dL (8.5-10.1); CARBON DIOXIDE 29 mmol/L (21-32); CHLORIDE 106 mmol/L (98-107); CREATINE KINASE 114 U/L (26-192); CREATININE 0.7 mg/dL (0.6-1.0); DIRECT BILIRUBIN 0.1 mg/dL (0.0-0.2); GFR 104.7; GLUCOSE 114 mg/dL (70-99); LIPASE 181 U/L (73-393); POTASSIUM 3.8 mmol/L (3.5-5.1); SODIUM 140 mmol/L (136-145); TOTAL BILIRUBIN 0.4 mg/dL (0.2-1.0); TOTAL PROTEIN 7.6 g/dL (6.4-8.2)
[2017-01-22] MEDS ORDERED: ONDANSETRON PF 4 MG/2 ML VIAL. IV PRN (09:15)
[2017-01-22 11:50] VITALS: BP 135/78
--- NOTE | 2017-01-22 13:02 | PDOC2 ---
ROSI BROOKS CONTENT ANALYST 01/22/17 1302: CONSULT Date of Admission DATE: 01/22/17 TIME: 12:45 Reason for Consult: presyncope Problem List Problems Medical Problems: (1) Pre-syncope Status: Acute History of Present Illness Ms Jaramillo is a 54 year old female with a history of coronary artery disease with prior stents to LAD and LCX. Her last cardiac cath revealed no significant stenosis and widely patent stents. She had a negative nuclear stress test in January of last year. She has additional history of resistant hypertension, hyperlipidemia and lupus. She presents with complaints of lightheadedness/dizziness that started while at work. She was apparently bending down cleaning a table with bleach solution when she became suddenly lightheaded. She says she stood up and stopped cleaning and opened the windows but the symptoms continued so she called her team supervisor and was advised go to ED for evaluation. She states the lightheadedness is better laying down, mild when sitting but increased with standing up. She denies any chest discomfort, dyspnea or palpitations. She did not experience a syncopal event. She denies any recent illness, nausea, vomiting, diarrhea, fever, chills or cough. She denies any change of her medications. She denies any congestive symptoms, edema or problems with functional capacity. Past Medical History Echo 08/08/16 The left ventricular systolic function is normal and the ejection fraction is within normal range. The Ejection Fraction is 60-65%. There is normal LV segmental wall motion. 01/23/16 MPI Conclusion 1. No evidence of stress induced EKG changes. 2. Normal myocardial perfusion noted at stress/rest. 3. Normal EF at > 65% 4. Low risk study 5. Subdiaphragmatic artifact noted on rest images. 10/07/13 cardiac cath FINDINGS: 1. Hemodynamics: Slightly elevated left ventricular end-diastolic pressure of 18 mmHg. No pullback gradient across the aortic valve. 2. Left ventriculography: Normal left ventricle systolic function with ejection fraction estimated at 65-70%. No significant mitral regurgitation seen. 3. Coronary angiography: A). The left main coronary artery arose from the left sinus of Valsalva, gave rise to the left anterior descending and the left circumflex arteries and did not show any significant stenosis. B). The left anterior descending artery showed widely patent previously placed stent in the proximal to midsegment. C). The left circumflex artery was a large caliber vessel, was dominant and showed a widely patent previously placed stent in the mid-distal segment. D). The right coronary artery was a small and nondominant vessel that did not show any significant stenosis. Conclusion 1. No significant coronary artery stenosis with widely patent previously placed stents in the left anterior descending and left circumflex arteries. 2. Normal left ventricle systolic function with ejection fraction estimated at 65-70%. 3. No mitral regurgitation. No aortic stenosis. Past Medical History coronary artery disease, hypertension, hyperlipidemia, lupus erythematosus Past Surgical History Status post hysterectomy and bilateral salpingo-oophorectomy. Status post left ear surgery. Status post section. Family History premature coronary disease in mother Social History prior smoker, no ETOH, occasional marijuana use Current Medications Current Medications Sodium Chloride 1,000 ml @ 1,000 mls/hr 1X ONCE IV Last administered on 01/22t 08:15; Start 01/22/17 at 08:15; Stop 01/22/17 at 09:14; Status DC Ondansetron HCl (Zofran) 4 mg PRN Q4HRS PRN IV NAUSEA/VOMITING; Start at 09:15; Stop 01/23/17 at 09:14 Active Scripts Active Reported Benicar (Olmesartan Medoxomil) 40 Mg Tablet 40 Mg PO DAILY LAST DOSE GIVEN: DATE: TIME: NEXT DOSE DUE: DATE: TIME: Amlodipine Besylate 10 Mg Tablet 10 Mg PO DAILY LAST DOSE GIVEN: DATE: TIME: NEXT DOSE DUE: DATE: TIME: Ranexa (Ranolazine) 500 Mg Tab.er.12h 500 Mg PO DAILY LAST DOSE GIVEN: DATE: TIME: NEXT DOSE DUE: DATE: TIME: Bystolic (Nebivolol Hcl) 10 Mg Tablet 10 Mg PO DAILY LAST DOSE GIVEN: DATE: TIME: NEXT DOSE DUE: DATE: TIME: Clopidogrel (Clopidogrel Bisulfate) 75 Mg Tablet 75 Mg PO DAILY LAST DOSE GIVEN: DATE: TIME: NEXT DOSE DUE: DATE: TIME: Aspirin Ec (Aspirin) 81 Mg Tablet.dr 81 Mg PO DAILY LAST DOSE GIVEN: DATE: TIME: NEXT DOSE DUE: DATE: TIME: Allergies: Coded Allergies: ticagrelor (Unverified Allergy, Unknown, Rash, 01/22/17) Review of System as per HPI or negative General: Alert, Oriented X3, Cooperative, No acute distress HEENT: Atraumatic, EOMI, Other (no carotid bruits) Lungs: Clear to auscultation, Normal air movement Heart: Regular rate, Normal S1, Normal S2, No murmurs, Other (no gallops, clicks or rubs) Abdomen: Normal bowel sounds, Soft, No tenderness Extremities: No clubbing, No cyanosis, No edema, Normal pulses Neuro: Normal speech, Strength at 5/5 X4 ext Psych/Mental Status: Mental status NL, Mood NL VITALS Vital Signs Date Time Temp Pulse Resp B/P (MAP) Pulse Ox O2 Delivery O2 Flow Rate FiO2 01/22/17 11:50 98.3 65 18 135/78 (97) 100 Room Air Labs Laboratory Tests Test 01/22/17 07:55 01/22/17 08:09 Urine Collection Type Unknown Urine Color Yellow Urine Clarity Clear Urine pH 7.0 Urine Specific [place] 1.015 Urine Protein Neg (NEG-TRACE) Urine Glucose (UA) Neg mg/dL (NEG) Urine Ketones (Stick) Neg mg/dL (NEG) Urine Blood Trace (NEG) Urine Nitrite Neg (NEG) Urine Bilirubin Neg (NEG) Urine Urobilinogen Dipstick 0.2 mg/dL (0.2 mg/dL) Urine Leukocyte Esterase Neg (NEG) Urine RBC 0 /HPF (0-2) Urine WBC Rare /HPF (0-4) Urine Squamous Epithelial Cells Occ /LPF Urine Bacteria 0 /HPF (0-FEW) Urine Opiates Screen Neg (NEG) Urine Methadone Screen Neg (NEG) Urine Barbiturates Neg (NEG) Urine Phencyclidine Screen Neg (NEG) Urine Amphetamine/Methamphetamine Neg (NEG) Urine Benzodiazepines Screen Neg (NEG) Urine Cocaine Screen Neg (NEG) Urine Cannabinoids Screen Pos (NEG) Urine Ethyl Alcohol Neg (NEG) White Blood Count 6.4 x10^3/uL (4.0-11.0) Red Blood Count 4.24 x10^6/uL (3.50-5.40) Hemoglobin 13.2 g/dL (12.0-15.5) Hematocrit 39.1 % (36.0-47.0) Mean Corpuscular Volume 92 fL (79-100) Mean Corpuscular Hemoglobin 31 pg (25-35) Mean Corpuscular Hemoglobin Concent 34 g/dL (31-37) Red Cell Distribution Width 13.3 % (11.5-14.5) Platelet Count 292 x10^3/uL (140-400) Neutrophils (%) (Auto) 59 % (31-73) Lymphocytes (%) (Auto) 32 % (24-48) Monocytes (%) (Auto) 6 % (0-9) Eosinophils (%) (Auto) 3 % (0-3) Basophils (%) (Auto) 1 % (0-3) Neutrophils # (Auto) 3.7 x10^3uL (1.8-7.7) Lymphocytes # (Auto) 2.0 x10^3/uL (1.0-4.8) Monocytes # (Auto) 0.4 x10^3/uL (0.0-1.1) Eosinophils # (Auto) 0.2 x10^3/uL (0.0-0.7) Basophils # (Auto) 0.0 x10^3/uL (0.0-0.2) Prothrombin Time 9.8 SEC (9.4-11.4) Prothromb Time International Ratio 1.0 (0.9-1.1) Activated Partial Thromboplast Time 25 SEC (23-33) Sodium Level 140 mmol/L (136-145) Potassium Level 3.8 mmol/L (3.5-5.1) Chloride Level 106 mmol/L (98-107) Carbon Dioxide Level 29 mmol/L (21-32) Anion Gap 5 (6-14) Blood Urea Nitrogen 11 mg/dL (7-20) Creatinine 0.7 mg/dL (0.6-1.0) Estimated GFR (Cockcroft-Gault) 104.7 Glucose Level 114 mg/dL (70-99) Calcium Level 8.9 mg/dL (8.5-10.1) Magnesium Level 2.0 mg/dL (1.8-2.4) Total Bilirubin 0.4 mg/dL (0.2-1.0) Direct Bilirubin 0.1 mg/dL (0.0-0.2) Aspartate Amino Transf (AST/SGOT) 17 U/L (15-37) Alanine Aminotransferase (ALT/SGPT) 20 U/L (14-59) Alkaline Phosphatase 90 U/L (46-116) Creatine Kinase 114 U/L (26-192) Creatine Kinase MB (Mass) < 0.5 ng/mL (0.0-3.6) Creatine Kinase MB Relative Index 0.4 % (0-4) Troponin I Quantitative < 0.017 ng/mL (0-0.055) XI-Klg-H-Type Natriuretic Peptide 61 pg/mL (0-124) Total Protein 7.6 g/dL (6.4-8.2) Albumin 3.8 g/dL (3.4-5.0) Lipase 181 U/L (73-393) Serum Test, Qualitative Negative (NEG) Images EKG - sinus rhythm with non specific abn CXR - IMPRESSION: No acute cardiopulmonary abnormality is detected. Assessment/Plan 1. lightheadedness/presyncope - check orthostatics, monitor tele, if not significantly orthostatic suggest event monitoring 2. CAD with history of prior LAD/LCX stenting - remains angina free, continue home medical therapy 2. hypertension - Controlled on current medical therapy, resume home meds. check orthostatics. 3. hyperlipidemia - check lipids Problems: KIMBER ROGERS MD 01/23/17 1626: CONSULT Allergies: Coded Allergies: ticagrelor (Unverified Allergy, Unknown, Rash, 01/22/17) Assessment/Plan Pt. seen and examind. Agree with above ENVIRONMENTAL TECHNICAL OFFICER note. Syncope related to non-cardiac issues. supportive care. f/u with Dr. Rose. Problems: ROSI BROOKS APRN Jan 22, 2017 13:02 KIMBER ROGERS MD Jan 23, 2017 16:26
[2017-01-22] MEDS: ACETAMINOPHEN 325 MG TABLET PO PRN ×2 (14:20→21:42)
[2017-01-22 14:28] VITALS: BP 145/90
[2017-01-22 14:30] VITALS: BP 161/89
[2017-01-22 14:31] VITALS: BP 183/87
--- NOTE | 2017-01-22 15:23 | RAD ---
CT of the head without contrast, 01/22/2017: History: Headache, dizziness Comparison is made to a study from 02/10/2014. The ventricles are within normal limits in size. There is no shift of the midline structures. There is no evidence of acute intracranial hemorrhage or mass effect. IMPRESSION: No acute intracranial abnormality is detected. PQRS Compliance Statement: One or more of the following individualized dose reduction techniques were utilized for this examination: 1. Automated exposure control 2. Adjustment of the mA and/or kV according to patient size 3. Use of iterative reconstruction technique
--- NOTE | 2017-01-22 19:27 | HP ---
ADMIT DATE: 01/22/2017 HISTORY OF PRESENT ILLNESS: The patient is a 56-year-old -[place] female patient, who came to the Emergency Room complaining of dizziness and presyncope. She stated that she was working this morning, cleaning the ____ with bleach water and that she does it frequently and all of a sudden started feeling like she was going to pass out. She stated that she felt dizzy, but did not have any vertigo type symptoms. She denied any nausea, vomiting, abdominal pain, chest discomfort. She has never had similar symptoms like she did feel that things are spinning around and she was brought to the Emergency Room for further evaluation. She apparently has had her orthostatics done and showed no evidence of postural hypertension. So far, all her lab works were normal and her toxic screen was positive for cannabinoids. She did complain of ____ sensation in her left ear. Apparently, she had had surgery before. She was admitted to consult the Cardiology Team and perhaps the neurologist. PAST MEDICAL HISTORY: Significant for hypertension, coronary artery disease status post PCI and stent deployment, hyperlipidemia. She apparently has had a history of systemic lupus erythematosus, treated with Cytoxan for 6 years. She also had lupus nephritis. She has had also overactive thyroid, although she is not on any medication for that and has had also osteoarthritis. PAST SURGICAL HISTORY: Significant for PCI and stent deployment x 2. She has total abdominal hysterectomy and bilateral salpingo-oophorectomy, left ear surgery and esophagogastroduodenoscopy. She has also had a . ALLERGIES: SHE IS ALLERGIC TO [place]. FAMILY HISTORY: She has 2 brothers, both have hypertension. She has also 5 sisters, seem that hypertension is positive for all family members. Family history is positive for diabetes and thyroid disease. Her father at the age of 76 because of head and neck cancer as well as prostate cancer. Her mother had end-stage renal disease and at the age of 74 when she quit hemodialysis. SOCIAL HISTORY: She is , has 1 daughter. She quit smoking in 05/2016. She drinks alcohol occasionally. Use marijuana more frequently. 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 MEDICATIONS: She apparently is on following medications: Amlodipine besylate 10 mg once a day, aspirin 81 mg once a day, Plavix 75 mg once a day, Nebivolol 10 mg once a day, Olmesartan 40 mg once a day, and ranolazine 500 mg daily. REVIEW OF SYSTEMS: The patient denied any blurring of vision, cataract, glaucoma, or macular degeneration. Denied any earache, tinnitus, or sensorineural deafness. Denied any nosebleeds, stuffy nose, or postnasal drip. Denied any sore throat, sore tongue, toothache, hoarseness of voice, or difficulty swallowing. Denied any nausea, vomiting, diarrhea, or constipation. Denied any hematemesis, melena, or hematochezia. Denied any dysuria, frequency, or hematuria. Denied any chest pain, shortness of breath, orthopnea, or paroxysmal nocturnal dyspnea. Denied any cough, phlegm, or hemoptysis. Denied any chills, rigors, or fever, did complain of dizziness and lightheadedness, but denied any vertigo. OBJECTIVE: GENERAL: When examined her, she looked well and was somewhat anxious and fidgety, but no pallor, jaundice, cyanosis, or thyromegaly. No jugular venous distention. No lower limb edema. VITAL SIGNS: Her heart rate was 65, blood pressure was 135/78, temperature was 98.3, respiratory rate was 18, and oxygen saturation was 100% on room air. HEENT: Normocephalic, atraumatic. NECK: Supple. HEART: Showed normal first and second heart sounds with no gallop, rub, or murmur. CHEST: Clear to auscultation. No crepitation or rhonchi. ABDOMEN: Distended, soft, nontender. No guarding or rigidity. No organomegaly. Hernial orifices intact. Bowel sounds normal. NEUROLOGIC: She was awake, alert, responding appropriately. She is somewhat seem to be anxious and restless, but all cranial nerves are intact. EXTREMITIES: She moves extremities without difficulty. She did complain of headache and dizziness whenever she changes position, but denied any spinning. Denied any nausea or vomiting. LABORATORY DATA: Showed a white cell count of 6400, hemoglobin 13, hematocrit 39, MCV 92, and platelet count of 292,000. Her chemistry showed a serum sodium 140, potassium 3.8, chloride 106, bicarbonate 29, anion gap of 5, BUN 11, creatinine was 0.7, estimated GFR was 104 mL per minute. Her glucose 114, calcium was 8.9, magnesium 2. Total bilirubin, AST, ALT, alkaline phosphatase were normal. Her first set of cardiac enzymes negative. Total protein was 7.6, albumin 3, and lipase was 181. Serum test was negative. Her TSH was normal at 0.643. Her prothrombin time was 9.8, INR 1, aPTT was 25. Urinalysis showed the urine was yellow, clear with a pH of 7, specific gravity of 01/26/2017. Her urine was negative for protein, glucose, ketones, trace of blood, negative for nitrite and leukocyte esterase, no rbc's, and rare wbc's. Her urine toxicology screen was negative for opiates, methadone, barbiturates, phencyclidine, amphetamine, methamphetamine, benzodiazepine, cocaine, and alcohol was positive for cannabinoids. Her chest x-ray showed that the left ventricle is mildly prominent. The pulmonary vascularity is normal. No pulmonary infiltrates are seen. There is no evidence of pleural fluid. Scattered degenerative changes are present in the spine. There are moderate arthritic changes at the left shoulder. ASSESSMENT AND PLAN: So, basically this is a 56-year-old -[place] female patient, who is coming with a complaint of dizziness and lightheadedness. There is no complaint of loss of consciousness, no fall, no lateralizing sign, and no spinning. We did repeat her orthostatic this afternoon and her blood pressure lying was 145/90 with a heart rate of 68, sitting was 161/89 with a heart rate of 68, and standing was 183/87 with a heart rate of 67, which definitely does not support any postural hypotension. My plan is to arrange for her to have a CT scan of the head and consult Dr. Lomeli to decide on further management accordingly. GISELE HUTCHINS MD DR: ALF/stanley JOB#: [id number] / [id number]
[2017-01-22 20:18] VITALS: BP 157/85
[2017-01-22 22:39] VITALS: BP 142/80
[2017-01-23 05:45] VITALS: BP 149/81
[2017-01-23 06:07] LABS: CALCIUM 9.2 mg/dL (8.5-10.1); CREATININE 0.8 mg/dL (0.6-1.0); GFR 89.8; POTASSIUM 3.8 mmol/L (3.5-5.1)
[2017-01-23 06:08] LABS: BASO % 1 % (0-3); EOS # 0.2 x10^3/uL (0.0-0.7); EOS % 3 % (0-3); HEMATOCRIT 42.8 % (36.0-47.0); HEMOGLOBIN 14.3 g/dL (12.0-15.5); LYMPH # 2.2 x10^3/uL (1.0-4.8); LYMPH % 36 % (24-48); MEAN CORPUSCULAR HEMOGLOBIN 31 pg (25-35); MEAN CORPUSCULAR HGB CONC 33 g/dL (31-37); MEAN CORPUSCULAR VOLUME 92 fL (79-100); MONO # 0.4 x10^3/uL (0.0-1.1); MONO % 7 % (0-9); NEUT # 3.2 x10^3uL (1.8-7.7); NEUT % 53 % (31-73); PLATELET COUNT 301 x10^3/uL (140-400); RED BLOOD COUNT 4.63 x10^6/uL (3.50-5.40); RED CELL DISTRIBUTION WIDTH 13.7 % (11.5-14.5); WHITE BLOOD COUNT 5.9 x10^3/uL (4.0-11.0)
[2017-01-23 06:53] LABS: PLT ESTIMATE ADEQUATE (ADEQUATE)
[2017-01-23] MEDS: ACETAMINOPHEN 325 MG TABLET PO PRN (08:49)
[2017-01-23] MEDS ORDERED: CLOPIDOGREL BISULFATE 75 MG TABLET PO SCH (09:00)
[2017-01-23] MEDS ORDERED: METOPROLOL TART IMMED RELEASE 50 MG TABLET PO SCH (09:00)
[2017-01-23] MEDS ORDERED: ASPIRIN ENTERIC COATED 81 MG TABLET.DR. PO SCH (09:00)
[2017-01-23] MEDS ORDERED: RANOLAZINE 500 MG TAB.ER.12H PO SCH (09:00)
[2017-01-23] MEDS ORDERED: amLODIPine BESYLATE 10 MG TABLET PO SCH (09:00)
[2017-01-23] MEDS ORDERED: LOSARTAN 50 MG TABLET. PO SCH (09:00)
[2017-01-23] MEDS ORDERED: BISACODYL TAB 5 MG TABLET.DR. PO ONE (11:00)
[2017-01-23 11:19] VITALS: BP 124/76
--- NOTE | 2017-01-23 19:52 | DS ---
DATE OF DISCHARGE: 01/23/2017 HOSPITAL COURSE: The patient is a 56-year-old female patient who came yesterday to the hospital to the Emergency Room with a complaint of dizziness and presyncope. 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 Not have any vertigo type symptoms. She denied any nausea, vomiting, abdominal pain, chest discomfort. She never had similar symptoms like this before. She was evaluated in the Emergency Room. Her lab works were all within acceptable range. She has no evidence of orthostatic hypotension. We did arrange for her to have a CT scan of the head without contrast, showed no evidence of intracranial pathology. We did consult Dr. Lomeli whose impression is that this is probably a side effect of exposure to bleach. As the patient has had no further symptoms of dizziness or lightheadedness, she has been up and about and has been stable, a decision was made to discharge her home to follow with her primary care physician. On examining her, she looked well and was clearly in no apparent respiratory distress. No pallor, jaundice, cyanosis or thyromegaly. No jugular venous distention. No limb edema. Her heart rate was 63, blood pressure 124/76, temperature was 98.8, respiratory rate 18 and oxygen saturation was 100% on room air. Rest of clinical examination is unremarkable, has not really changed. Her lab work this morning showed a white cell count of 5900, hemoglobin 14, hematocrit 44, MCV 92, and platelet count of 301,000. Her chemistry showed a serum sodium 142, potassium 3.8, chloride 106, bicarbonate 30, anion gap of 6, BUN 12, creatinine 0.8, estimated GFR was 90 mL per minute. Her glucose 121, calcium was 9.2. She had 3 sets of cardiac enzymes that were all negative. They are less than 0.017. Her TSH was normal at 0.642. CT scan of the head showed that the ventricles are within normal limits in size. There is no shift of the midline structure. There is no evidence of acute intracranial hemorrhage or mass effect. DISCHARGE MEDICATIONS: The patient was discharged home to continue on amlodipine 10 mg once a day, aspirin 81 mg once a day, Plavix 75 mg once a day, nebivolol 10 mg once a day, Benicar 40 mg once a day, and ranolazine or Ranexa 500 mg once a day. FINAL DISCHARGE DIAGNOSES: Dizziness, likely due exposure to bleach. Other medical problems include hypertension, coronary artery disease status post percutaneous intervention with stent deployment. GISELE HUTCHINS MD DR: ALF/stanley JOB#: [id number] / [id number]
--- NOTE | 2017-01-24 00:26 | CONS ---
DATE OF CONSULTATION: 01/22/2017 REFERRING PHYSICIAN: Doris Sandoval M.D. REASON FOR CONSULTATION: Severe dizziness. HISTORY OF PRESENT ILLNESS: This is a 56-year-old right-handed -Eritrean female who was admitted through Emergency Room after she presented with chief complaints of acute onset of dizziness, described as lightheadedness or heaviness in the head, aggravated by standing up. The patient stated she had 45-minute exposure to the pledge pipe cleaner. According to the patient, she was cleaning the tables at work with pledge pipe cleaner for approximately 5 minutes and all of a sudden she felt very dizzy, but she denies spinning, described it as lightheadedness or heaviness in the head more ____. She tried to sit down and tried to be out of the area and get fresh air, but she continues to have dizzy sensations. In the Emergency Room, she was tested for possible orthostatic hypotension, but she did not have that. She denies chest pain, shortness of breath, or palpitations, but she was sweating. She denies visual disturbances, weakness, numbness or paresthesia. Initial nonenhanced head CT scan was unremarkable and urine drug screen test revealed evidence of marijuana. PAST MEDICAL HISTORY: Significant for coronary artery disease status post PCI and stent placement x2, hypertension, history of systemic lupus erythematosus, which was treated with Cytoxan for 6 years, history of lupus nephritis and hypothyroidism, osteoarthritis. PAST SURGICAL HISTORY: Significant for total abdominal hysterectomy, left ear surgery in childhood, and x1. FAMILY HISTORY: The patient has 2 brothers with history of hypertension and 5 sisters with hypertension. Strong family history with diabetes mellitus, thyroid. Father at the age of 76 of head and neck cancer and prostate cancer. Her mother with end-stage of renal disease. She is 64-year-old and she is on home dialysis. SOCIAL HISTORY: The patient is . She has one daughter. She quit smoking in May 2016. 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 CURRENT HOME MEDICATIONS: Include Plavix 75 mg daily, aspirin 81 mg daily, amlodipine 10 mg p.o. daily, Nebivolol 10 mg p.o. daily, Olmesartan 40 mg daily, ranolazine 500 mg daily. REVIEW OF SYSTEMS: A 10-point review of system was performed and consistent with " lightheadedness" as described above in the history of present illness, otherwise, unremarkable. PHYSICAL EXAMINATION: GENERAL: Well-developed, well-nourished -[place] female, not in acute distress. She weighs 146 pounds. VITAL SIGNS: Blood pressure is 142/80, respiratory rate 18, pulse 65 and regular, temperature 97.8, oxygen saturation is 100% on room air. HEENT: Normocephalic, atraumatic, otherwise, unremarkable. NECK: Supple. Negative for carotid bruit, lymphadenopathy, JVD or thyromegaly. LUNGS: Clear to A and P. CARDIOVASCULAR: Regular rate and rhythm, normal S1, S2. There is no S3, S4 or murmur. ABDOMEN: Soft. Bowel sounds positive. EXTREMITIES: Negative for cyanosis, clubbing or pitting edema. NEUROLOGIC: 1. MENTAL STATUS: The patient is alert and oriented x3. The speech is fluent. There is no language dysfunction. Memory, judgment, and abstract thinking are normal. The patient denies hallucination or delusion. 2. CRANIAL NERVES: Visual burden are full. The pupils are reactive to light and accommodation. The extraocular movements are intact. There is no nystagmus. There is no facial motor or sensory deficit. Hearing is intact bilaterally. The palate is elevated symmetrically. Sternocleidomastoid muscles are powerful bilaterally. The patient shrugs her shoulders symmetrically. Protrudes her tongue in the midline without fasciculation or atrophy. 3. MOTOR: No focal muscle bulk was seen. The tone is normal. The strength is 5/5 throughout. 4. SENSORY: Normal pinprick, light touch, vibratory and position senses. 5. Deep tendon reflexes are symmetric and active with absent Achilles responses. 6. GAIT: The patient is steady. She walks in the room without assistance. LABORATORY DATA: CBC revealed blood cells of 6.4 thousand, hemoglobin 13.2, hematocrit 39.1, platelet count 292,000. Chemistry revealed sodium of 140, potassium 3.8, chloride 106, CO2 29, BUN 11, creatinine 0.7, glucose 114. Liver enzymes are normal. Cardiac enzymes normal. Urinalysis is negative, but urine tox screen is positive for marijuana. Diagnosing nonenhanced head CT scan revealed no evidence of acute intracranial process and chest x-ray revealed no evidence of acute cardiopulmonary process. IMPRESSION: 1. Acute onset of dizziness, described as lightheadedness and heaviness in the head with normal neurologic examination and nonenhanced head CT scan. The etiology is uncertain, but probably due to excessive exposure to pledge pipe cleaner. 2. Multiple medical problems include hypertension, coronary artery disease, and lupus nephritis. RECOMMENDATIONS: Continue with current management initiated by Dr. Sandoval. No further neurological investigations are needed at this time. We would evaluate the patient in the morning for any neurological or residual. M Jose Armando PENNINGTON MD DR: RAMSEY/stanley JOB#: [id number] / [id number]
--- NOTE | 2017-01-24 03:17 | PN ---
DATE: 01/23/2017 SUBJECTIVE: The patient denies any new medical or neurological complaints. She denies headaches, visual disturbances, dizziness, vertigo, or heaviness in the head. OBJECTIVE: GENERAL: Well-developed, well-nourished female, not in acute distress. VITAL SIGNS: Blood pressure 120/88, respiratory rate 20, pulse is 79, oxygen saturation 100% on room air, temperature is 98. HEENT: Normocephalic, atraumatic, otherwise unremarkable. NECK: Supple. Negative for carotid bruit, lymphadenopathy, or thyromegaly. LUNGS: Clear to A and P. CARDIOVASCULAR: Regular rate and rhythm. Normal S1, S2. There is no S3, S4, or murmur. ABDOMEN: Soft. Bowel sounds positive. EXTREMITIES: Negative for cyanosis, clubbing, or pitting edema. NEUROLOGIC: Normal mental status and intact cranial nerves. There is no focal motor or sensory deficit. Deep tendon reflexes were symmetric and hypoactive with absent Achilles responses. Gait and coordination are normal. LABORATORY DATA: Chemistry revealed sodium 142, potassium 3.8, chloride 106, CO2 of 30, BUN 12, creatinine 0.8, glucose 121, and calcium 9.2. IMPRESSION AND PLAN: 1. New-onset of dizziness described as heaviness in the head and lightheadedness with intermittent impaired balance -- resolved with normal neurological examination. 2. History of multiple medical problems includes hypertension, coronary artery disease, and lupus nephritis. RECOMMENDATIONS: Continue with current management initiated by Dr. Sandoval. The patient is neurologically intact. M Jose Armando PENNINGTON MD DR: RAMSEY/stanley JOB#: [id number] / [id number]
== END 2017-01-23 14:22 | disposition home or self-care (01) ==
LOC: ER 07:33 → INTOOBSV 10:15 → ICU 10:15
PROVIDERS: ADMIT Internal Medicine; ATTEND Internal Medicine
DX: R42 Dizziness and giddiness (principal); I10 Essential (primary) hypertension; I25.10 Atherosclerotic heart disease of native coronary artery without angina pectoris; E03.9 Hypothyroidism, unspecified; M19.90 Unspecified osteoarthritis, unspecified site; E78.5 Hyperlipidemia, unspecified; F12.90 Cannabis use, unspecified, uncomplicated; Z87.39 Personal history of other diseases of the musculoskeletal system and connective tissue; Z79.02 Long term (current) use of antithrombotics/antiplatelets; Z79.82 Long term (current) use of aspirin; Z82.49 Family history of ischemic heart disease and other diseases of the circulatory system; Z87.448 Personal history of other diseases of urinary system; Z83.3 Family history of diabetes mellitus; Z87.891 Personal history of nicotine dependence; Z90.710 Acquired absence of both cervix and uterus; Z95.5 Presence of coronary angioplasty implant and graft
CPT/HCPCS: 36415; 70450; 71010; 80048; 80076; 80307; 81001; 82553; 83690; 83735; 83880; 84443; 84484; 84703; 85025; 85610; 85730; 87641; 93005; 96360; 99285; G0378; G0379; G0479; J7030

== ENCOUNTER 2017-06-03 13:05 | Inpatient (IN) | payer OTHER ==
[~2017-06-03] VITALS: Ht 167.6 cm; Wt 76.9 kg
--- NOTE | 2017-06-03 13:16 | PHYS DOC ---
Past History Past Medical History: CAD, Hypertension, Other Past Surgical History: Hysterectomy, Other Smoking: Cigarettes, Cigar, Quit Greater Than 1 Year Alcohol Use: Rarely Drug Use: Marijuana Adult General Chief Complaint Chief Complaint: DIZZY/LIGHT HEADED HPI HPI Patient is a 57 year old female who presents with near syncopal episode. She states it started around this morning at 8:30 she felt tunnel vision and felt like she is going pass out. She felt very dizzy. She denies any nausea chest pain or shortness of breath. She states he symptoms lasted about 30 minutes resolved on its own. She then prior to arrival to the emergency department had the same thing happened again. She called 911 because she's had this happen before and had to have a pacemaker placed in February. She states she has a history of coronary disease and had 2 stents placed 5 years ago. She states prior to today she's been feeling fine. She has a [employer] pacemaker at the placed March 10, 2017. Review of Systems Review of Systems Constitutional: Denies fever or chills [] Eyes: Denies change in visual acuity, redness, or eye pain [] HENT: Denies nasal congestion or sore throat [] Respiratory: Denies cough or shortness of breath [] Cardiovascular: No additional information not addressed in HPI [] GI: Denies abdominal pain, nausea, vomiting, bloody stools or diarrhea [] : Denies dysuria or hematuria [] Musculoskeletal: Denies back pain or joint pain [] Integument: Denies rash or skin lesions [] Neurologic: Denies headache, focal weakness or sensory changes [] Endocrine: Denies polyuria or polydipsia [] All other systems were reviewed and found to be within normal limits, except as documented in this note. Allergies Allergies Allergies Coded Allergies Type Severity Reaction Last Updated Verified ticagrelor Allergy Unknown Rash 01/22/17 No Physical Exam Physical Exam Constitutional: Well developed, well nourished, no acute distress, non-toxic appearance. [] HENT: Normocephalic, atraumatic, bilateral external ears normal, oropharynx moist, no oral exudates, nose normal. [] Eyes: PERRLA, EOMI, conjunctiva normal, no discharge. [] Neck: Normal range of motion, no tenderness, supple, no stridor. [] Cardiovascular:Heart rate regular rhythm, no murmur [] Lungs & Thorax: Bilateral breath sounds clear to auscultation [] Abdomen: Bowel sounds normal, soft, no tenderness, no masses, no pulsatile masses. [] Skin: Warm, dry, no erythema, no rash. [] Back: No tenderness, no CVA tenderness. [] Extremities: No tenderness, no cyanosis, no clubbing, ROM intact, no edema. [] Neurologic: Alert and oriented X 3, normal motor function, normal sensory function, no focal deficits noted. [] Psychologic: Affect normal, judgement normal, mood normal. [] EKG EKG EKG shows sinus rhythm with rate of 70 bpm without any concerning ST elevations , T-wave inversion in aVL, normal axis, QTC 450, as interpreted by me. Radiology/Procedures Radiology/Procedures [address] [address] IMAGING REPORT Signed PATIENT: CAROL JOSHI ACCOUNT: [id number] : 1960 LOCATION: ER AGE: 57 SEX: F EXAM STATUS: REG ER ORD. PHYSICIAN: RAMIREZ ZIMMERMAN MD REASON: syncope PROCEDURE: PORTABLE CHEST 1V Portable chest, 06/03/2017: History: Near syncope Comparison is made to a study from 01/22/2017. A left-sided transvenous pacemaker is in place with 2 leads extending into the right heart. The heart size is within normal limits. There is calcific plaquing of the aorta. The pulmonary vascularity is normal. No pulmonary infiltrates are seen. There is no evidence of pleural fluid. Moderate arthritic change is present at the left shoulder. IMPRESSION: No acute cardiopulmonary abnormality is detected. DICTATED AND SIGNED BY: KAREN DAILEY MD DATE: 06/03/17 3425 CC: RAMIREZ ZIMMERMAN MD; GUILLAUME MARCANO APRN ~ Impressions: Presyncope Coronary artery disease Marijuana abuse Course & Med Decision Making Course & Med Decision Making Pertinent Labs and Imaging studies reviewed. (See chart for details) Labs, orthostatic vitals, EKG nonacute. Will admit for continued cardiac monitoring and a smoker interrogation. Patient be admitted Dr. Doyle in stable condition at this time. We'll also place cardiology consultation since she does see Dr. Rose. Cecilia Disclaimer Cecilia Disclaimer This electronic medical record was generated, in whole or in part, using a voice recognition dictation system. Departure Departure: Impression: Primary Impression: Pre-syncope Disposition: ADMITTED INPATIENT Admitting Physician: Fatuma Doyle Condition: STABLE Referrals: GUILLAUME MARCANO APRN (PCP) RAMIREZ ZIMMERMAN MD Jun 03, 2017 13:16
[2017-06-03] MEDS ORDERED: ASPIRIN 325 MG TABLET PO ONE (13:30)
--- NOTE | 2017-06-03 13:36 | RAD ---
Portable chest, 06/03/2017: History: Near syncope Comparison is made to a study from 01/22/2017. A left-sided transvenous pacemaker is in place with 2 leads extending into the right heart. The heart size is within normal limits. There is calcific plaquing of the aorta. The pulmonary vascularity is normal. No pulmonary infiltrates are seen. There is no evidence of pleural fluid. Moderate arthritic change is present at the left shoulder. IMPRESSION: No acute cardiopulmonary abnormality is detected.
[2017-06-03 13:37] LABS: BASO % 1 % (0-3); EOS # 0.1 x10^3/uL (0.0-0.7); EOS % 1 % (0-3); HEMATOCRIT 42.1 % (36.0-47.0); HEMOGLOBIN 13.7 g/dL (12.0-15.5); LYMPH # 1.6 x10^3/uL (1.0-4.8); LYMPH % 24 % (24-48); MEAN CORPUSCULAR HEMOGLOBIN 30 pg (25-35); MEAN CORPUSCULAR HGB CONC 33 g/dL (31-37); MEAN CORPUSCULAR VOLUME 91 fL (79-100); MONO # 0.3 x10^3/uL (0.0-1.1); MONO % 5 % (0-9); NEUT # 4.5 x10^3uL (1.8-7.7); NEUT % 69 % (31-73); PLATELET COUNT 327 x10^3/uL (140-400); RED BLOOD COUNT 4.63 x10^6/uL (3.50-5.40); RED CELL DISTRIBUTION WIDTH 14.2 % (11.5-14.5); WHITE BLOOD COUNT 6.5 x10^3/uL (4.0-11.0)
[2017-06-03 13:57] LABS: ALBUMIN 3.8 g/dL (3.4-5.0); ALK PHOS 95 U/L (46-116); ALT (SGPT) 22 U/L (14-59); ANION GAP 7 (6-14); AST (SGOT) 18 U/L (15-37); BLOOD UREA NITROGEN 12 mg/dL (7-20); CALCIUM 9.1 mg/dL (8.5-10.1); CARBON DIOXIDE 31 mmol/L (21-32); CHLORIDE 104 mmol/L (98-107); CREATININE 0.9 mg/dL (0.6-1.0); DIRECT BILIRUBIN 0.1 mg/dL (0.0-0.2); GFR 78.1; GLUCOSE 140 mg/dL (70-99); POTASSIUM 3.6 mmol/L (3.5-5.1); SODIUM 142 mmol/L (136-145); TOTAL BILIRUBIN 0.4 mg/dL (0.2-1.0); TOTAL PROTEIN 7.9 g/dL (6.4-8.2)
[2017-06-03 14:08] LABS: AMPHETAMINE/METHAMPHETAMINE NEG (NEG); BARBITURATES NEG (NEG); BENZODIAZEPINES NEG (NEG); CANNABINOIDS POS (NEG); COCAINE NEG (NEG); METHADONE NEG (NEG); OPIATES NEG (NEG); PHENCYCLIDINE NEG (NEG)
[2017-06-03 14:09] LABS: BILIRUBIN,URINE NEG (NEG); CLARITY,URINE HAZY; COLOR,URINE YELLOW; GLUCOSE,URINE NEG (NEG)
[2017-06-03 14:10] LABS: BACTERIA,URINE FEW /HPF (0-FEW); HYALINE CASTS, URINE OCC /HPF; NITRITE,URINE NEG (NEG); UROBILINOGEN,URINE 0.2 mg/dL (0.2 mg/dL)
[2017-06-03 14:12] LABS: SQUAMOUS EPITHELIAL CELL,UR MOD /LPF
[2017-06-03 14:18] LABS: PLT ESTIMATE ADEQUATE (ADEQUATE)
[2017-06-03] MEDS ORDERED: ONDANSETRON PF 4 MG/2 ML VIAL. IV PRN (15:45)
--- NOTE | 2017-06-03 16:03 | EKG ---
[address] [address] Test Date: 2017-06-03 Test Time: 14:15:59 Pat Name: CAROL JOSHI Department: Room: Gender: F Senior Analytical Chemist: : 1960 Requested By: RAMIREZ ZIMMERMAN Order Number: [id number] Reading MD: Yousif Camejo Measurements Intervals [place] Rate: 70 P: 56 NE: 176 QRS: 76 QRSD: 80 T: 75 QT: 382 QTc: 415 Interpretive Statements SINUS RHYTHM NONSPECIFIC ST-T WAVE CHANGES. RI6.01 Compared to ECG 01/22/2017 07:46:22 No significant changes Electronically Signed On 06-04-2017 12:11:04 SADDLE STITCH OPERATOR by Yousif Camejo
--- NOTE | 2017-06-03 16:09 | EKG ---
[address] [address] Test Date: 2017-06-03 Test Time: 14:14:24 Pat Name: CAROL JOSHI Department: Room: Gender: F Senior Staff Psychologist: : 1960 Requested By: RAMIREZ ZIMMERMAN Order Number: [id number] Reading MD: Yousif Camejo Measurements Intervals [place] Rate: 69 P: 47 WI: 180 QRS: 73 QRSD: 80 T: 75 QT: 384 QTc: 413 Interpretive Statements SINUS RHYTHM NONSPECIFIC ST-T WAVE CHANGES. RI6.01 Compared to ECG 01/22/2017 07:46:22 No significant changes Electronically Signed On 06-04-2017 12:10:49 COMPLETIONS ENGINEER by Yousif Camejo
[2017-06-03 16:15] VITALS: BP 169/83
[2017-06-03 16:30] VITALS: BP 169/83
[2017-06-03] MEDS ORDERED: AMLO-433 PO (19:20)
[2017-06-03 19:54] VITALS: BP 162/78
[2017-06-03 22:46] VITALS: BP 133/79
[2017-06-04] VITALS (8 sets, daily range): BP systolic 120–158; BP diastolic 76–95
[2017-06-04] MEDS: CLOPIDOGREL BISULFATE 75 MG TABLET PO SCH (08:18)
[2017-06-04] MEDS: ASPIRIN ENTERIC COATED 81 MG TABLET.DR. PO SCH (08:19)
--- NOTE | 2017-06-04 09:09 | PDOC2 ---
CONSULT Date of Admission DATE: 06/04/17 TIME: 09:08 Reason for Consult: pre syncope Problem List Problems Medical Problems: (1) Pre-syncope Status: Acute History of Present Illness Ms Jaramillo is a 54 year old female with a history of coronary artery disease with prior stents to LAD and LCX. Her last cardiac cath revealed no significant stenosis and widely patent stents. She had a negative nuclear stress test in January of 2016. She did undergo pacemaker placement in February of 2017 for sick sinus syndrome. She has additional history of resistant hypertension, hyperlipidemia and lupus. She presents with complaints of lightheadedness/dizziness that started while at work. She reports a feeling of pressure in her stomach followed by lightheadedness and pressure in her head and a feeling that she might pass out. She denies any change in symptoms with position change or activity and reports it occasionally happens while laying in bed. She denies any palpitations or chest pain. She does report some mild dyspnea that occurs with the lightheadedness. She denies congestive symptoms. She did not experience a syncopal event. She denies any recent illness, nausea , vomiting, diarrhea, fever, chills or cough. She denies any change of her medications. She denies any problems with functional capacity. Past Medical History Past Medical History Echo 08/08/16 The left ventricular systolic function is normal and the ejection fraction is within normal range. The Ejection Fraction is 60-65%. There is normal LV segmental wall motion. 01/23/16 MPI Conclusion 1. No evidence of stress induced EKG changes. 2. Normal myocardial perfusion noted at stress/rest. 3. Normal EF at > 65% 4. Low risk study 5. Subdiaphragmatic artifact noted on rest images. 10/07/13 cardiac cath FINDINGS: 1. Hemodynamics: Slightly elevated left ventricular end-diastolic pressure of 18 mmHg. No pullback gradient across the aortic valve. 2. Left ventriculography: Normal left ventricle systolic function with ejection fraction estimated at 65-70%. No significant mitral regurgitation seen. 3. Coronary angiography: A). The left main coronary artery arose from the left sinus of Valsalva, gave rise to the left anterior descending and the left circumflex arteries and did not show any significant stenosis. B). The left anterior descending artery showed widely patent previously placed stent in the proximal to midsegment. C). The left circumflex artery was a large caliber vessel, was dominant and showed a widely patent previously placed stent in the mid-distal segment. D). The right coronary artery was a small and nondominant vessel that did not show any significant stenosis. Conclusion 1. No significant coronary artery stenosis with widely patent previously placed stents in the left anterior descending and left circumflex arteries. 2. Normal left ventricle systolic function with ejection fraction estimated at 65-70%. 3. No mitral regurgitation. No aortic stenosis. coronary artery disease, hypertension, hyperlipidemia, lupus erythematosus Past Surgical History Status post hysterectomy and bilateral salpingo-oophorectomy. Status post left ear surgery. Status post section. PPM placement 03/10/17. Family History premature coronary disease in mother Social History prior smoker, no ETOH, occasional marijuana use Current Medications Current Medications Aspirin (Henrietta Aspirin) 325 mg 1X ONCE PO Last administered on 06/03/17at 13:50 ; Start 06/03/17 at 13:30; Stop 06/03/17 at 13:35; Status DC Ondansetron HCl (Zofran) 4 mg PRN Q4HRS PRN IV NAUSEA/VOMITING; Start 06/03/17 at 15:45; Stop 06/04/17 at 15:44 Aspirin (Aspirin Enteric Coated) 81 mg DAILY PO Last administered on 06/04/17at 08:19; Start 06/04/17 at 09:00 Clopidogrel Bisulfate (Plavix) 75 mg DAILY PO Last administered on 06/04/17at 08 :18; Start 06/04/17 at 09:00 Amlodipine Besylate (Norvasc) 10 mg DAILY PO ; Start 06/04/17 at 09:00 Metoprolol Tartrate (Lopressor) 50 mg BID PO ; Start 06/04/17 at 09:00 Losartan Potassium (Cozaar) 100 mg DAILY PO ; Start 06/04/17 at 09:00 Active Scripts Active Reported Amlodipine-Olmesartan 10-40 mg (Amlodipine Bes/Olmesartan Med) 1 Each Tablet 1 Tab PO DAILY LAST DOSE GIVEN: DATE: TIME: NEXT DOSE DUE: DATE: TIME: Bystolic (Nebivolol Hcl) 10 Mg Tablet 10 Mg PO DAILY last dose this morning next dose tomorrow TIME: NEXT DOSE DUE: DATE: TIME: Clopidogrel (Clopidogrel Bisulfate) 75 Mg Tablet 75 Mg PO DAILY last dose this morning next dose tomorrow TIME: NEXT DOSE DUE: DATE: TIME: Aspirin Ec (Aspirin) 81 Mg Tablet.dr 81 Mg PO DAILY last dose this morning next dose tomorrow TIME: NEXT DOSE DUE: DATE: TIME: Allergies: Coded Allergies: ticagrelor (Unverified Allergy, Unknown, Rash, 01/22/17) Review of System as per HPI General: Alert, Oriented X3, Cooperative, No acute distress HEENT: Atraumatic, EOMI, Mucous membr. moist/pink Lungs: Clear to auscultation, Normal air movement Heart: Regular rate, Normal S1, Normal S2, Other (no gallops, clicks or rubs) Abdomen: Normal bowel sounds, Soft, No tenderness Extremities: No cyanosis, No edema, Normal pulses Neuro: Normal speech, Strength at 5/5 X4 ext Psych/Mental Status: Mental status NL, Mood NL VITALS Vital Signs Date Time Temp Pulse Resp B/P (MAP) Pulse Ox O2 Delivery O2 Flow Rate FiO2 06/04/17 07:52 83 141/94 (110) 06/04/17 07:50 98.3 20 99 Room Air Labs Laboratory Tests Test 06/03/17 13:22 06/03/17 13:50 White Blood Count 6.5 x10^3/uL (4.0-11.0) Red Blood Count 4.63 x10^6/uL (3.50-5.40) Hemoglobin 13.7 g/dL (12.0-15.5) Hematocrit 42.1 % (36.0-47.0) Mean Corpuscular Volume 91 fL (79-100) Mean Corpuscular Hemoglobin 30 pg (25-35) Mean Corpuscular Hemoglobin Concent 33 g/dL (31-37) Red Cell Distribution Width 14.2 % (11.5-14.5) Platelet Count 327 x10^3/uL (140-400) Neutrophils (%) (Auto) 69 % (31-73) Lymphocytes (%) (Auto) 24 % (24-48) Monocytes (%) (Auto) 5 % (0-9) Eosinophils (%) (Auto) 1 % (0-3) Basophils (%) (Auto) 1 % (0-3) Neutrophils # (Auto) 4.5 x10^3uL (1.8-7.7) Lymphocytes # (Auto) 1.6 x10^3/uL (1.0-4.8) Monocytes # (Auto) 0.3 x10^3/uL (0.0-1.1) Eosinophils # (Auto) 0.1 x10^3/uL (0.0-0.7) Basophils # (Auto) 0.0 x10^3/uL (0.0-0.2) Platelet Estimate Adequate (ADEQUATE) Large Platelets Few Prothrombin Time 10.2 SEC (9.4-11.4) Prothromb Time International Ratio 1.0 (0.9-1.1) Activated Partial Thromboplast Time 23 SEC (23-33) Sodium Level 142 mmol/L (136-145) Potassium Level 3.6 mmol/L (3.5-5.1) Chloride Level 104 mmol/L (98-107) Carbon Dioxide Level 31 mmol/L (21-32) Anion Gap 7 (6-14) Blood Urea Nitrogen 12 mg/dL (7-20) Creatinine 0.9 mg/dL (0.6-1.0) Estimated GFR (Cockcroft-Gault) 78.1 Glucose Level 140 mg/dL (70-99) Calcium Level 9.1 mg/dL (8.5-10.1) Total Bilirubin 0.4 mg/dL (0.2-1.0) Direct Bilirubin 0.1 mg/dL (0.0-0.2) Aspartate Amino Transf (AST/SGOT) 18 U/L (15-37) Alanine Aminotransferase (ALT/SGPT) 22 U/L (14-59) Alkaline Phosphatase 95 U/L (46-116) Creatine Kinase 109 U/L (26-192) Creatine Kinase MB (Mass) < 0.5 ng/mL (0.0-3.6) Creatine Kinase MB Relative Index 0.5 % (0-4) Troponin I Quantitative < 0.017 ng/mL (0-0.055) UK-Pqy-Z-Type Natriuretic Peptide 74 pg/mL (0-124) Total Protein 7.9 g/dL (6.4-8.2) Albumin 3.8 g/dL (3.4-5.0) Urine Collection Type Unknown Urine Color Yellow Urine Clarity Hazy Urine pH 7.0 Urine Specific [place] 1.020 Urine Protein 30 mg/dl (NEG-TRACE) Urine Glucose (UA) Neg mg/dL (NEG) Urine Ketones (Stick) Trace mg/dL (NEG) Urine Blood Neg (NEG) Urine Nitrite Neg (NEG) Urine Bilirubin Neg (NEG) Urine Urobilinogen Dipstick 0.2 mg/dL (0.2 mg/dL) Urine Leukocyte Esterase Neg (NEG) Urine RBC 1-2 /HPF (0-2) Urine WBC 1-4 /HPF (0-4) Urine Squamous Epithelial Cells Mod /LPF Urine Bacteria Few /HPF (0-FEW) Urine Hyaline Casts Occ /HPF Urine Mucus Mod /LPF Urine Opiates Screen Neg (NEG) Urine Methadone Screen Neg (NEG) Urine Barbiturates Neg (NEG) Urine Phencyclidine Screen Neg (NEG) Urine Amphetamine/Methamphetamine Neg (NEG) Urine Benzodiazepines Screen Neg (NEG) Urine Cocaine Screen Neg (NEG) Urine Cannabinoids Screen Pos (NEG) Urine Ethyl Alcohol Neg (NEG) Images CXR - IMPRESSION: No acute cardiopulmonary abnormality is detected. Assessment/Plan 1. pre syncope - monitor orthostatics. No arrhythmias. Neuro consulted. 2. SSS s/p PPM - normal device function 3. CAD with prior PCI/stents - she remain angina free. 4. hypertension - continue home medications 5. hyperlipidemia - statin Problems: ROSI BROOKS APRN Jun 04, 2017 09:09
[2017-06-04] MEDS ORDERED: ACETAMINOPHEN 325 MG TABLET PO PRN (10:30)
[2017-06-04] MEDS: amLODIPine BESYLATE 10 MG TABLET PO SCH (10:43)
[2017-06-04] MEDS: LOSARTAN 50 MG TABLET. PO SCH (10:43)
[2017-06-04] MEDS: METOPROLOL TART IMMED RELEASE 50 MG TABLET PO SCH ×2 (10:44→20:01)
[2017-06-04] MEDS ORDERED: ACETAMINOPHEN 500 MG TABLET PO ONE (11:00)
--- NOTE | 2017-06-04 14:39 | HP ---
ADMIT DATE: 06/03/2017 REASON FOR ADMISSION: Near syncopal episode. 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 At 8:30, she was at work. She felt her head spinning. She felt hot and dizzy and this lasted about 10 minutes and she felt slightly short of breath and off balance, but she was able to work her way through it and it resolved itself after 30 minutes. At 11:00, it came back. It was a little worse. She got hot again. She had pain starting in her mid epigastrium radiating up into her head and then so came to the hospital. She has had previous admission in January 2017 with dizziness and presyncope. She had a pacemaker placed in February. PAST MEDICAL HISTORY: Coronary artery disease, 2 stents placed [address] [facility] pacemaker in 03/10/2017, previous history of syncope, also coronary artery disease, hypertension. MEDICATIONS: Reviewed and are available on the MAR. PAST SURGICAL HISTORY: Hysterectomy 20 years ago. HABITS: Previous smoker, quit in May 2016. She is a frequent marijuana user, but did not use yesterday morning. Rare alcohol. Works in daycare. FAMILY HISTORY: Mother had a stroke but is and had hypertension. REVIEW OF SYSTEMS: Positive for continuous low-grade headache, but more severe right now. Denies numbness or tingling. Denies urinary problems. Denies bowel problems. Denies chest pain or current shortness of breath. OBJECTIVE: VITAL SIGNS: Blood pressure is 144/84, pulse 55. She also had a pulse of 83 and 74. Orthostatics negative. HEENT: Left TM has a white patch over the drum, it is dull. Right TM also dull. Pupils are equal, round, and react to light. Extraocular muscles are intact. Nose patent. Throat clear. NECK: Supple, without adenopathy. LUNGS: Clear to auscultation. CARDIOVASCULAR: Regular rhythm and rate. ABDOMEN: Soft, nontender. No pain in the mid epigastrium. Bowel sounds positive. EXTREMITIES: Without edema. NEUROLOGIC: She is alert and oriented, but is complaining of a headache. LABORATORY DATA: Unremarkable CBC. Chemistry negative. Troponin 0.017. Urinalysis contaminated specimen. Drug screen positive for cannabinoids ASSESSMENT: 1. Near syncopal episode. 2. Pacemaker. 3. Episode of bradycardia with pulse of 55. 4. Hypertension. PLAN: Cardiology has seen, await for Dr. Lomeli, inform Cardiology of the bradycardia, although the pacemaker has been interrogated and there were no dysrhythmias. KING SALGADO DO DR: YASMEEN/stanley JOB#: [id number] / [id number]
[2017-06-05 04:51] VITALS: BP 153/80
[2017-06-05 06:56] LABS: BASO % 0 % (0-3); EOS # 0.1 x10^3/uL (0.0-0.7); EOS % 1 % (0-3); HEMATOCRIT 42.9 % (36.0-47.0); HEMOGLOBIN 14.2 g/dL (12.0-15.5); LYMPH # 2.3 x10^3/uL (1.0-4.8); LYMPH % 30 % (24-48); MEAN CORPUSCULAR HEMOGLOBIN 30 pg (25-35); MEAN CORPUSCULAR HGB CONC 33 g/dL (31-37); MEAN CORPUSCULAR VOLUME 91 fL (79-100); MONO # 0.5 x10^3/uL (0.0-1.1); MONO % 6 % (0-9); NEUT # 4.6 x10^3uL (1.8-7.7); NEUT % 62 % (31-73); PLATELET COUNT 310 x10^3/uL (140-400); RED BLOOD COUNT 4.74 x10^6/uL (3.50-5.40); RED CELL DISTRIBUTION WIDTH 13.8 % (11.5-14.5); WHITE BLOOD COUNT 7.4 x10^3/uL (4.0-11.0)
[2017-06-05 07:18] LABS: ALBUMIN 3.6 g/dL (3.4-5.0); ALBUMIN/GLOBULIN RATIO 0.9 (1.0-1.7); CREATININE 0.8 mg/dL (0.6-1.0); GFR 89.5; MAGNESIUM 2.1 mg/dL (1.8-2.4); POTASSIUM 3.8 mmol/L (3.5-5.1); TOTAL BILIRUBIN 0.4 mg/dL (0.2-1.0); TOTAL PROTEIN 7.7 g/dL (6.4-8.2)
[2017-06-05] MEDS: amLODIPine BESYLATE 10 MG TABLET PO SCH (08:16)
[2017-06-05] MEDS: LOSARTAN 50 MG TABLET. PO SCH (08:17)
[2017-06-05] MEDS: ASPIRIN ENTERIC COATED 81 MG TABLET.DR. PO SCH (08:17)
[2017-06-05] MEDS: METOPROLOL TART IMMED RELEASE 50 MG TABLET PO SCH (08:17)
[2017-06-05] MEDS: CLOPIDOGREL BISULFATE 75 MG TABLET PO SCH (08:17)
--- NOTE | 2017-06-05 10:26 | PDOC ---
ROSI BROOKS [employer] 06/05/17 1026: PROGRESS NOTES Diagnosis Problem Problems Medical Problems: (1) Pre-syncope Status: Acute Assessment Problems Medical Problems: (1) Pre-syncope Status: Acute 1. pre syncope - negative orthostatics. No arrhythmias. ? related to bradycardia. Neuro consulting. 2. SSS s/p PPM - normal device function. Base rate currently 60 in DDD mode. 3. CAD with prior PCI/stents - she remains angina free. Continue medical therapy. 4. hypertension - continue home medications 5. hyperlipidemia - statin Will reprogram PM with base rate increased to 60 and change to DDDR mode. Problems: Subjective Couple of lightheaded spells yesterday, none today. No syncope. No chest pain , no dyspnea. Objective Vital Signs Date Time Temp Pulse Resp B/P (MAP) Pulse Ox O2 Delivery O2 Flow Rate FiO2 06/05/17 08:30 Room Air 06/05/17 08:17 58 153/80 06/05/17 04:51 98.5 16 92 Intake and Output 06/05/17 06:59 Intake Total 1560 ml Balance 1560 ml Intake Oral 1560 ml # Voids 5 Abdomen: Normal bowel sounds, Soft, No tenderness Heart: Regular rate, Normal S1, Normal S2 Extremities: No cyanosis, No edema, Normal pulses General: Alert, Oriented X3, Cooperative, No acute distress HEENT: Atraumatic, EOMI, Mucous membr. moist/pink Lungs: Clear to auscultation, Normal air movement Neuro: Normal speech, Strength at 5/5 X4 ext Psych/Mental Status: Mental status NL, Mood NL Review of Relevant I have reviewed the following items vinnie (where applicable) has been applied. Labs Laboratory Tests Test 06/03/17 13:22 06/03/17 13:50 06/05/17 06:28 White Blood Count 6.5 x10^3/uL (4.0-11.0) 7.4 x10^3/uL (4.0-11.0) Red Blood Count 4.63 x10^6/uL (3.50-5.40) 4.74 x10^6/uL (3.50-5.40) Hemoglobin 13.7 g/dL (12.0-15.5) 14.2 g/dL (12.0-15.5) Hematocrit 42.1 % (36.0-47.0) 42.9 % (36.0-47.0) Mean Corpuscular Volume 91 fL (79-100) 91 fL (79-100) Mean Corpuscular Hemoglobin 30 pg (25-35) 30 pg (25-35) Mean Corpuscular Hemoglobin Concent 33 g/dL (31-37) 33 g/dL (31-37) Red Cell Distribution Width 14.2 % (11.5-14.5) 13.8 % (11.5-14.5) Platelet Count 327 x10^3/uL (140-400) 310 x10^3/uL (140-400) Neutrophils (%) (Auto) 69 % (31-73) 62 % (31-73) Lymphocytes (%) (Auto) 24 % (24-48) 30 % (24-48) Monocytes (%) (Auto) 5 % (0-9) 6 % (0-9) Eosinophils (%) (Auto) 1 % (0-3) 1 % (0-3) Basophils (%) (Auto) 1 % (0-3) 0 % (0-3) Neutrophils # (Auto) 4.5 x10^3uL (1.8-7.7) 4.6 x10^3uL (1.8-7.7) Lymphocytes # (Auto) 1.6 x10^3/uL (1.0-4.8) 2.3 x10^3/uL (1.0-4.8) Monocytes # (Auto) 0.3 x10^3/uL (0.0-1.1) 0.5 x10^3/uL (0.0-1.1) Eosinophils # (Auto) 0.1 x10^3/uL (0.0-0.7) 0.1 x10^3/uL (0.0-0.7) Basophils # (Auto) 0.0 x10^3/uL (0.0-0.2) 0.0 x10^3/uL (0.0-0.2) Platelet Estimate Adequate (ADEQUATE) Large Platelets Few Prothrombin Time 10.2 SEC (9.4-11.4) Prothromb Time International Ratio 1.0 (0.9-1.1) Activated Partial Thromboplast Time 23 SEC (23-33) Sodium Level 142 mmol/L (136-145) 141 mmol/L (136-145) Potassium Level 3.6 mmol/L (3.5-5.1) 3.8 mmol/L (3.5-5.1) Chloride Level 104 mmol/L (98-107) 105 mmol/L (98-107) Carbon Dioxide Level 31 mmol/L (21-32) 28 mmol/L (21-32) Anion Gap 7 (6-14) 8 (6-14) Blood Urea Nitrogen 12 mg/dL (7-20) 12 mg/dL (7-20) Creatinine 0.9 mg/dL (0.6-1.0) 0.8 mg/dL (0.6-1.0) Estimated GFR (Cockcroft-Gault) 78.1 89.5 Glucose Level 140 mg/dL (70-99) 120 mg/dL (70-99) Calcium Level 9.1 mg/dL (8.5-10.1) 9.0 mg/dL (8.5-10.1) Total Bilirubin 0.4 mg/dL (0.2-1.0) 0.4 mg/dL (0.2-1.0) Direct Bilirubin 0.1 mg/dL (0.0-0.2) Aspartate Amino Transf (AST/SGOT) 18 U/L (15-37) 18 U/L (15-37) Alanine Aminotransferase (ALT/SGPT) 22 U/L (14-59) 22 U/L (14-59) Alkaline Phosphatase 95 U/L (46-116) 90 U/L (46-116) Creatine Kinase 109 U/L (26-192) Creatine Kinase MB (Mass) < 0.5 ng/mL (0.0-3.6) Creatine Kinase MB Relative Index 0.5 % (0-4) Troponin I Quantitative < 0.017 ng/mL (0-0.055) XX-Nzy-A-Type Natriuretic Peptide 74 pg/mL (0-124) Total Protein 7.9 g/dL (6.4-8.2) 7.7 g/dL (6.4-8.2) Albumin 3.8 g/dL (3.4-5.0) 3.6 g/dL (3.4-5.0) Thyroid Stimulating Hormone (TSH) 0.731 uIU/mL (0.358-3.740) Urine Collection Type Unknown Urine Color Yellow Urine Clarity Hazy Urine pH 7.0 Urine Specific [place] 1.020 Urine Protein 30 mg/dl (NEG-TRACE) Urine Glucose (UA) Neg mg/dL (NEG) Urine Ketones (Stick) Trace mg/dL (NEG) Urine Blood Neg (NEG) Urine Nitrite Neg (NEG) Urine Bilirubin Neg (NEG) Urine Urobilinogen Dipstick 0.2 mg/dL (0.2 mg/dL) Urine Leukocyte Esterase Neg (NEG) Urine RBC 1-2 /HPF (0-2) Urine WBC 1-4 /HPF (0-4) Urine Squamous Epithelial Cells Mod /LPF Urine Bacteria Few /HPF (0-FEW) Urine Hyaline Casts Occ /HPF Urine Mucus Mod /LPF Urine Opiates Screen Neg (NEG) Urine Methadone Screen Neg (NEG) Urine Barbiturates Neg (NEG) Urine Phencyclidine Screen Neg (NEG) Urine Amphetamine/Methamphetamine Neg (NEG) Urine Benzodiazepines Screen Neg (NEG) Urine Cocaine Screen Neg (NEG) Urine Cannabinoids Screen Pos (NEG) Urine Ethyl Alcohol Neg (NEG) BUN/Creatinine Ratio 15 (6-20) Magnesium Level 2.1 mg/dL (1.8-2.4) Albumin/Globulin Ratio 0.9 (1.0-1.7) Medications Current Medications Aspirin (Henrietta Aspirin) 325 mg 1X ONCE PO Last administered on 06/03/17at 13:50 ; Start 06/03/17 at 13:30; Stop 06/03/17 at 13:35; Status DC Ondansetron HCl (Zofran) 4 mg PRN Q4HRS PRN IV NAUSEA/VOMITING; Start 06/03/17 at 15:45; Stop 06/04/17 at 15:44; Status DC Aspirin (Aspirin Enteric Coated) 81 mg DAILY PO Last administered on 06/05/17at 08:17; Start 06/04/17 at 09:00 Clopidogrel Bisulfate (Plavix) 75 mg DAILY PO Last administered on 06/05/17at 08 :17; Start 06/04/17 at 09:00 Amlodipine Besylate (Norvasc) 10 mg DAILY PO Last administered on 06/05/17at 08: 16; Start 06/04/17 at 09:00 Metoprolol Tartrate (Lopressor) 50 mg BID PO Last administered on 06/05/17at 08: 17; Start 06/04/17 at 09:00 Losartan Potassium (Cozaar) 100 mg DAILY PO Last administered on 06/05/17at 08: 17; Start 06/04/17 at 09:00 Acetaminophen (Tylenol) 1,000 mg 1X ONCE PO Last administered on 06/04/17at 10: 42; Start 06/04/17 at 11:00; Stop 06/04/17 at 11:01; Status DC Acetaminophen (Tylenol) 650 mg PRN Q6HRS PRN PO PAIN; Start 06/04/17 at 10:30 Active Scripts Active Reported Amlodipine-Olmesartan 10-40 mg (Amlodipine Bes/Olmesartan Med) 1 Each Tablet 1 Tab PO DAILY LAST DOSE GIVEN: DATE: TIME: NEXT DOSE DUE: DATE: TIME: Bystolic (Nebivolol Hcl) 10 Mg Tablet 10 Mg PO DAILY last dose this morning next dose tomorrow TIME: NEXT DOSE DUE: DATE: TIME: Clopidogrel (Clopidogrel Bisulfate) 75 Mg Tablet 75 Mg PO DAILY last dose this morning next dose tomorrow TIME: NEXT DOSE DUE: DATE: TIME: Aspirin Ec (Aspirin) 81 Mg Tablet.dr 81 Mg PO DAILY last dose this morning next dose tomorrow TIME: NEXT DOSE DUE: DATE: TIME: Vitals/I & O Vital Sign - Last 24 Hours 06/04/17 06/04/17 06/04/17 06/04/17 10:25 10:43 10:43 10:44 Temp 98.5 Pulse 55 55 55 55 Resp 20 B/P (MAP) 144/84 (104) 144/84 144/84 144/84 Pulse Ox 100 O2 Delivery Room Air 06/04/17 06/04/17 06/04/17 06/04/17 14:39 19:24 20:00 20:01 Temp 97.8 98.5 Pulse 68 67 67 Resp 20 17 B/P (MAP) 153/95 (114) 139/81 (100) 139/81 Pulse Ox 96 99 O2 Delivery Room Air Room Air Room Air 06/04/17 06/05/17 06/05/17 06/05/17 22:56 04:51 08:16 08:17 Temp 98.5 Pulse 69 58 58 58 Resp 16 16 B/P (MAP) 137/76 (96) 153/80 (104) 153/80 153/80 Pulse Ox 97 92 O2 Delivery Room Air Room Air 06/05/17 06/05/17 08:17 08:30 Pulse 58 B/P (MAP) 153/80 O2 Delivery Room Air Intake and Output 06/04/17 06/04/17 06/05/17 14:59 22:59 06:59 Intake Total 600 ml 600 ml 360 ml Balance 600 ml 600 ml 360 ml KIMBER ROGERS MD 06/08/17 0802: ROSI BROOKS APRN Jun 05, 2017 10:26 KIMBER ROGERS MD Jun 08, 2017 08:02
[2017-06-05 11:01] VITALS: BP 126/84
--- NOTE | 2017-06-05 15:04 | DS ---
DATE OF DISCHARGE: 06/05/2017 DISCHARGE DIAGNOSES: 1. Presyncope, possibly related to bradycardia. 2. Sick sinus syndrome status post permanent pacemaker, rate was currently 50 in a DDD mode, rate increased to 60. 3. Coronary artery disease with prior stents, angina free. 4. Hypertension. 5. Hyperlipidemia. HOSPITAL COURSE: This is a 57-year-old female who had several what she describes as sensation of dizziness, feeling hot, head spinning, and feels sensation that she was going to pass out. She actually did have a couple of those in the hospital and her heart rate was around 70 at that time. She was seen by Cardiology and her pacemaker was adjusted in the possible event that these sensations are because of that of low pulse that she did have, I believe at the lowest it was 49 here in the hospital. She will follow up. She was also seen by Dr. Lomeli who felt that it was not neurologic related. Her discharge vital signs, blood pressure 126/84, pulse 66, temperature 98.7, respirations 20, pulse ox 94% on room air. PLAN: Follow up with primary care and bottle labeler as needed, but she will see Dr. Rose in a month. KING SALGADO DO DR: YASMEEN/stanley JOB#: [id number] / [id number]
--- NOTE | 2017-06-07 16:39 | CONS ---
DATE OF CONSULTATION: NEUROLOGICAL CONSULTATION REFERRING PHYSICIAN: Dr. Doyle. CHIEF COMPLAINT: Headaches and dizziness. HISTORY OF PRESENT ILLNESS: This is a 57-year-old right-handed, female, who was admitted through Emergency Room after she presented with 2-week history of recurrent spells described as sudden onset of lightheadedness, but not spinning associated with hot feeling radiating from the stomach to the head and mild shortness of breath. The patient used to have 1-2 spells a day, each will last 5-10 minutes, but yesterday, she had a prolonged spells lasted approximately 30 minutes when she was at work. She felt as she is going to pass out, but she did not lose her consciousness. She denies chest pain or palpitations. The symptoms have not induced by changing her body positions as she would have recurrent spells in why she is lying in bed. Since admission, the patient has had four episodes, each one lasted 5-10 minutes. The last episode was this afternoon while she was waiting for taking a shower. The patient was in sitting positions. She denies weakness, paresthesia, dysphagia, dysarthria, or visual disturbances. PAST MEDICAL HISTORY: Significant for SSS, required pacemaker placement in 02/2017 after she presented with similar spells and bradycardia. The patient had extensive cardiac workup including echocardiogram, which showed normal left ventricle systolic function with ejection fraction of 60-65%. She underwent MPI with normal myocardial perfusion. The last cardiac catheterization was performed on 10/07/2013, which revealed patent coronary arteries. Other medical problems include coronary artery disease status post 2 stent placement over the last 5 years, hypertension, hyperlipidemia and lupus erythematosus, migraine variant. SOCIAL HISTORY: The patient is . She has one child. She denies smoking, but she smokes marijuana. She drinks alcohol. FAMILY HISTORY: Her mother had heart disease, but she from kidney failure. CURRENT HOME MEDICATIONS: Tylenol 650 mg q. 6 hours p.r.n., amlodipine 10 mg daily, aspirin 81 mg daily, Plavix 75 mg daily, losartan 100 mg daily, Lopressor 50 mg b.i.d., Bystolic 10 mg daily. ALLERGIES: TICAGRELOR. REVIEW OF SYSTEMS: A 10-point review of system was performed as mentioned above in history of present illness. PHYSICAL EXAMINATION: GENERAL: Well-developed, well-nourished female, not in acute distress. She weighs 169 pounds. VITAL SIGNS: Blood pressure 153/95, respiratory rate 20, pulse is 68 and regular, temperature 97.8, oxygen saturation 96% on room air. HEENT: Normocephalic, atraumatic, otherwise, unremarkable. NECK: Supple. Negative for carotid bruit, lymphadenopathy or thyromegaly. LUNGS: Clear to A and P. CARDIOVASCULAR: Regular rate and rhythm, normal S1, S2. There is no S3, S4 or murmur. ABDOMEN: Soft. Bowel sounds positive. EXTREMITIES: Negative for cyanosis, clubbing or pitting edema. NEUROLOGIC: Mental Status: The patient is alert and oriented x 3. The speech is fluent. There is no language dysfunction. Memory, judgment and abstract thinkings are normal. The patient denies hallucination or delusion. CRANIAL NERVES: Visual burden are full. The pupils are reactive to light and accommodation. The extraocular movements are intact. There is no nystagmus. There is no facial motor or sensory deficit. Hearing is intact bilaterally. The palate is elevated symmetrically. Sternocleidomastoid muscles are powerful bilaterally. The patient shrugs her shoulders symmetrically, protrudes her tongue in the midline without fasciculation or atrophy. MOTOR: No focal muscle bulk was seen. The tone is normal. The strength is 5/5 throughout. Sensory examination revealed normal pinprick, light touch, vibratory and position senses. Deep tendon reflexes were symmetric and active without pathologic responses. Gait and coordination are normal. DIAGNOSTIC DATA: Chest x-ray revealed no acute intracardiopulmonary process. LABORATORY DATA: CBC revealed white blood cells of 6.5 thousand, hemoglobin 13.7, hematocrit 42.1, platelet count of 327,000. Chemistry revealed sodium 142, potassium 3.6, chloride 104, CO2 of 31, BUN 12, creatinine 0.9, glucose 140, calcium 9.1. Liver enzymes are normal. Creatine kinase is normal at 109. Troponin is 0.017. ____ is normal at 74. TSH is 0.7. Urinalysis negative for urinary tract infections. Urine drug screen is negative. PT is 10.2, INR is 1. EKG revealed a normal sinus rhythm at rate of 70. IMPRESSION: 1. Presyncope, probably due to intermittent bradycardia. No orthostatic hypertension detected during this hospitalization. 2. Multiple medical problems include coronary artery disease, status post pacemaker placement, status post stent placement x 2, hypertension, history of hyperlipidemia and lupus. 3. Normal neurological examination. RECOMMENDATIONS: 1. Follow up with camera mechanic with Cardiology Service for possible adjust pacemaker rate. 2. Continue with current care initiated by Dr. Doyle. M Jose Armando PENNINGTON MD DR: RAMSEY/stanley JOB#: [id number] / [id number]
--- NOTE | 2017-06-07 16:41 | PN ---
DATE: 06/05/2017 SUBJECTIVE: The patient denies any new medical neurological complaints. She denies chest pain, shortness of breath, palpitation, fainting, headaches, nausea, vomiting, dysarthria, dysphagia, weakness or paresthesia. OBJECTIVE: GENERAL: Well-developed, well nourished, -Gren[place] female in no acute distress. VITAL SIGNS: Blood pressure 153/80, ____, temperature is 98.5, oxygen saturation is 92% on room air. HEENT: Normocephalic, atraumatic, otherwise unremarkable. NECK: Supple. Negative for carotid bruit, lymphadenopathy or thyromegaly. LUNGS: Clear to A and P. CARDIOVASCULAR: Regular rate and rhythm. Normal S1, S2. There is no S3, S4 or murmur. ABDOMEN: Soft. Bowel sounds positive. EXTREMITIES: Negative for cyanosis, clubbing or pitting edema. NEUROLOGICAL EXAM: Mental Status: The patient is alert and oriented x 3. Speech is fluent. There is no language dysfunction. Memory, judgment, and thinking are normal. The patient denies hallucination or delusion. Cranial nerves are intact. Motor Examination: No focal muscle bulk was seen. The tone is normal. The strength is 5/5 throughout. Sensory examination revealed normal pinprick, light touch, vibratory and position senses. Deep tendon reflexes were symmetric and active without pathology responses. Gait and coordination are normal. LABORATORY DATA: CBC revealed white blood cells of 7.4 thousand, hemoglobin 14.2, hematocrit 42.3, platelet count 310. Chemistry revealed sodium of 141, potassium 3.8, chloride 105, CO2 of 28, BUN 12, creatinine 0.8, glucose 120, calcium is 9. IMPRESSION: 1. This is a presyncope -- resolved. 2. Status post pacemaker. 3. Hypertension. 4. Normal neurological examination. RECOMMENDATIONS: Continue with current management as initiated by Dr. Doyle and continue with recommendation as initiated by Cardiology. M Jose Armando PENNINGTON MD DR: RAMSEY/stanley JOB#: [id number] / [id number]
== END 2017-06-05 11:24 | disposition home or self-care (01) | DRG 310 ==
LOC: ER 13:05 → 1 SOUTH 15:10 → ER 16:10
PROVIDERS: ADMIT Family Medicine; ATTEND Family Medicine
PROC: 4B02XSZ Measurement of Cardiac Pacemaker, External Approach (ICD-10-PCS; principal; 2017-06-04)
DX: R00.1 Bradycardia, unspecified (principal); E78.5 Hyperlipidemia, unspecified; I10 Essential (primary) hypertension; F12.10 Cannabis abuse, uncomplicated; I25.10 Atherosclerotic heart disease of native coronary artery without angina pectoris; L93.0 Discoid lupus erythematosus; G43.909 Migraine, unspecified, not intractable, without status migrainosus; Z82.3 Family history of stroke; Z82.49 Family history of ischemic heart disease and other diseases of the circulatory system; Z87.891 Personal history of nicotine dependence; Z90.710 Acquired absence of both cervix and uterus; Z95.0 Presence of cardiac pacemaker; Z95.5 Presence of coronary angioplasty implant and graft; Z88.8 Allergy status to other drugs, medicaments and biological substances
CPT/HCPCS: 36415; 71045; 80048; 80053; 80076; 80307; 81001; 82553; 83735; 83880; 84443; 84484; 85025; 85610; 85730; 93005; 99285-25; G0479

== ENCOUNTER → 2017-09-15 | Outpatient (CLI) | payer OTHER ==
[~2017-09-15] MED LIST changes: +AMLO-433 PO
--- NOTE | 2017-09-15 09:19 | RAD ---
Posterior chest wall ultrasound, 09/15/2017: HISTORY: Upper back lump The area of clinical concern was carefully scanned. There is a smooth oval shaped subcutaneous mass at this level which is relatively isoechoic relative to the subcutaneous fat. It measures 4.8 x 1.3 x 4.5 cm. The features are most compatible with a lipoma. Clinical surveillance is suggested. No other abnormality is seen in this region. Electronically signed by: Delano Palacios MD (09/15/2017 9:16 AM) [facility]
== END | disposition home or self-care (01) ==
LOC: US 07:38
PROVIDERS: ATTEND Nurse Practitioner Family
DX: M79.9 Soft tissue disorder, unspecified (principal)
CPT/HCPCS: 76882

== ENCOUNTER → 2019-02-23 | Outpatient (CLI) | payer OTHER ==
[~2019-02-23] MED LIST changes: -AMLO10TA2 PO; +AMLO10TA8 PO; +HYDR-3165 PO; -HYDR-971 PO
--- NOTE | 2019-02-24 16:32 | CARD ---
MR#: [id number] Date of Study: 02/23/2019 Ordering Physician: ANNE BARRETT, Referring Physician: ANNE BARRETT, Tech: Brianne Latham APPROVED REPORT EXAM: Two-dimensional and M-mode echocardiogram with Doppler and color Doppler. Other Information Quality : GoodHR: 61bpm INDICATION Arrhythmia Surgery/Intervention Pacemaker: Date: 2016 RISK FACTORS Hypertension Hyperlipidemia 2D DIMENSIONS RVDd2.9 (2.9-3.5cm)Left Atrium(2D)2.9 (1.6-4.0cm) IVSd1.6 (0.7-1.1cm)Aortic Root(2D)2.8 (2.0-3.7cm) LVDd4.3 (3.9-5.9cm)LVOT Diameter2.1 (1.8-2.4cm) PWd1.1 (0.7-1.1cm)LVDs2.9 (2.5-4.0cm) FS (%) 31.5 %SV49.4 ml LVEF(%)59.7 (>50%) Aortic Valve AoV Peak Festus.151.3cm/sAoV VTI28.8cm AO Peak GR.9.2mmHgLVOT Peak Festus.94.8cm/s LVOT VTI 20.09cmAO Mean GR.4mmHg AVELINO (VMAX)2.12te4IUY (VTI)2.45cm2 Mitral Valve MV E Ijhwfisv05.3cm/sMV DECEL XEYJ526od MV A Hesbpgwh60.3cm/sE/A Ratio0.8 Pulmonary Valve PV Peak Yevmhgpo61.0cm/sPV Peak Grad.3mmHg Tricuspid Valve TR P. Vtgycjmr000cu/sRAP IPIOWJNY6omKn TR Peak Gr.35svFmMVWU60zuEx Pulmonary Vein S1 Cwsukcdg19.7cm/sD2 Lggwyrgh44.5cm/s LEFT VENTRICLE The left ventricle is normal size. There is mild to moderate concentric left ventricular hypertrophy. The left ventricular systolic function is normal and the ejection fraction is within normal range. T he Ejection Fraction is 55%. There is normal LV segmental wall motion. Transmitral Doppler flow patte rn is Grade I-abnormal relaxation pattern. RIGHT VENTRICLE The right ventricle is normal size. There is normal right ventricular wall thickness. The right ventr icular systolic function is normal. ATRIA The left atrium size is normal. The right atrium size is normal. There is a pacemaker lead seen in th e right atrium. The interatrial septum is intact with no evidence for an atrial septal defect or stinson nt foramen ovale as noted on 2-D or Doppler imaging. AORTIC VALVE The aortic valve is normal in structure and function. Doppler and Color Flow revealed no significant aortic regurgitation. There is no significant aortic valvular stenosis. MITRAL VALVE The mitral valve is normal in structure and function. There is no evidence of mitral valve prolapse. There is no mitral valve stenosis. Doppler and Color-flow revealed trace mitral regurgitation. TRICUSPID VALVE The tricuspid valve is normal in structure and function. Doppler and Color Flow revealed mild to mode rate tricuspid regurgitation with an estimated PAP of 43 mmHg. There is no tricuspid valve stenosis. PULMONIC VALVE The pulmonary valve is normal in structure and function. Doppler and Color Flow revealed trace pulmon ic valvular regurgitation. There is no pulmonic valvular stenosis. GREAT VESSELS The aortic root is normal in size. The IVC is normal in size and collapses >50% with inspiration. PERICARDIAL EFFUSION There is no evidence of significant pericardial effusion. Critical Notification Critical Value: No <Conclusion> The left ventricular systolic function is normal and the ejection fraction is within normal range. Th e Ejection Fraction is 55%. There is normal LV segmental wall motion. There is mild to moderate concentric left ventricular hypertrophy. Doppler and Color Flow revealed mild to moderate tricuspid regurgitation with an estimated PAP of 43 mmHg. Signed by : J Luis Georges, Electronically Approved : 02/23/2019 16:34:51
== END | disposition home or self-care (01) ==
LOC: ECHO 13:50
PROVIDERS: ATTEND Internal Medicine Cardiovascular Disease
DX: I07.1 Rheumatic tricuspid insufficiency (principal); I11.9 Hypertensive heart disease without heart failure; I49.5 Sick sinus syndrome; Z95.0 Presence of cardiac pacemaker
CPT/HCPCS: 93306

== ENCOUNTER 2019-06-26 13:59 | Inpatient (IN) | payer OTHER ==
[~2019-06-26] VITALS: Ht 167.6 cm; Wt 71.3 kg
[2019-06-26] MEDS ORDERED: IV NORMAL SALINE 1,000ML 1,000 ML IV SCH (14:18)
--- NOTE | 2019-06-26 14:46 | PHYS DOC ---
Past History Past Medical History: CAD, Hypertension, Other Past Surgical History: Hysterectomy, Other Smoking: Cigarettes, Cigar, Quit Greater Than 1 Year Alcohol Use: Rarely Drug Use: Marijuana Adult General Chief Complaint Chief Complaint: ALTERED MENTAL STATUS HPI HPI Patient is a 59 year old admitted with history of hypertension and coronary artery disease and pacemaker placement who presents via EMS with complaining of nonresponding. Patient has been started he saw her last night in her normal condition around 2300 and today prior to arrival to ER around 1400 found her shaking with jerking movement and not responding or talking. EMS reported that patient tried to talk containing her name. Patient had movement of all extremities at arrival to ER and telling her name slurred speech and on the posterior give more history. Patient's family states she had a normal day yesterday and did not have history of seizure or the same problem previously. Review of Systems Review of Systems Unable to obtain because of altered level of consciousness Allergies Allergies Allergies Coded Allergies Type Severity Reaction Last Updated Verified ticagrelor Allergy Unknown Rash 01/22/17 No Physical Exam Physical Exam Constitutional: Well nourished, mild distress, non-toxic appearance, agitated. [] HENT: Normocephalic, atraumatic, bilateral external ears normal, oropharynx moist, no oral exudates, nose normal. [] Eyes: PERRLA, EOMI, conjunctiva normal, no discharge. [] Neck: Normal range of motion, no tenderness, supple, no stridor. [] Cardiovascular:Heart rate regular rhythm, no murmur [] Lungs & Thorax: Bilateral breath sounds clear to auscultation [] Abdomen: Bowel sounds normal, soft, no tenderness, no masses, no pulsatile masses. [] Skin: Warm, dry, no erythema, no rash. [] Back: No tenderness, no CVA tenderness. [] Extremities: No tenderness, no cyanosis, no clubbing, ROM intact, no edema. [] Neurologic: Somnolent and agitated, moves all extremity, unable to check for focal neuro deficits or sensation. Psychologic: Unable to evaluate Current Patient Data Lab Results Laboratory Tests Test 06/26/19 14:26 Glucose (Fingerstick) 139 mg/dL (70-99) H EKG EKG EKG interpreted by me. EKG at 1450 showed normal sinus rhythm at rate of 82, normal MD and QT intervals, left atrial abnormality, no acute ST and T-wave elevation. Radiology/Procedures Radiology/Procedures [address] [address] IMAGING REPORT Signed PATIENT: CAROL JOSHI ACCOUNT: [id number] : 1960 LOCATION: ER AGE: 59 SEX: F EXAM STATUS: PRE ER ORD. PHYSICIAN: KENTON LARSEN MD REASON: confusion and headache PROCEDURE: PORTABLE CHEST 1V EXAM: Chest, single view. HISTORY: Confusion. COMPARISON: 06/03/2017 FINDINGS: A frontal view of the chest is obtained. There is no infiltrate, pleural effusion or pneumothorax. The heart is normal in size. There is a cardiac pacemaker in expected position. There is advanced degenerative change involving the left shoulder, with associated joint loose bodies. IMPRESSION: No acute pulmonary finding. Electronically signed by: Leti Huang MD (06/26/2019 2:49 PM) [facility] [place] DICTATED AND SIGNED BY: LETI HUANG MD DATE: 06/26/19 1449 CC: KENTON LARSEN MD; PCP,NO ~ [address] [address] IMAGING REPORT Signed PATIENT: CAROL JOSHI ACCOUNT: [id number] : 1960 LOCATION: ER AGE: 59 SEX: F EXAM STATUS: PRE ER ORD. PHYSICIAN: KENTON LARSEN MD REASON: ALOC PROCEDURE: CT CODE STROKE HEAD WO EXAM: Head CT without contrast. HISTORY: Code stroke. Altered level of consciousness. TECHNIQUE: Computed tomographic images of the head were obtained without contrast. *One or more of the following individualized dose reduction techniques were utilized for this examination: 1. Automated exposure control. 2. Adjustment of the mA and/or kV according to patient size. 3. Use of iterative reconstruction technique. COMPARISON: 01/22/2017. FINDINGS: There is no acute or subacute extra-axial or intraparenchymal hemorrhage. There is no mass effect or midline shift. There is no hydrocephalus. The putnam-white matter differentiation pattern is intact. There is stable asymmetric soft tissue within the anterior medial superior right orbit, possibly associated with the lacrimal duct and likely of no clinical significance given the absence of interval pack changer a greater than two-year interval. The mastoid air cells are clear. The visualized paranasal sinuses are unremarkable. There is no calvarial lesion. IMPRESSION: No acute intracranial findings. Findings were discussed with Gloria, a nurse in the ED, at 1440 hours on 06/26/2019. Electronically signed by: Leti Huang MD (06/26/2019 2:48 PM) [facility] [place] DICTATED AND SIGNED BY: LETI HUANG MD DATE: 06/26/19 4858 CC: KENTON LARSEN MD; PCP,NO ~ Course & Med Decision Making Course & Med Decision Making Pertinent Labs and Imaging studies reviewed. (See chart for details) Evaluation of patient in ER showed 59-year-old female patient brought in by EMS because of altered level of consciousness and was talking. Patient moved all extremities at arrival to ER and because of uncorrected reports from EMS about seeing an over the groin her normal condition code stroke was activated. Patient was not candidate for TPA because state the last time she was seen was last night and she was able to move all of her extremities and gradually became better and able to talk and temperature name. Patient complaining of headache. Patient did not have history of seizure and she had the seizure activity and pos tictal condition. Labs was unremarkable except for mild elevation of lactic acid at 2.1 and sepsis protocol was not performed because of concern for seizure and elevation of lactic acid.Patient requiring admission for further evaluation and treatment. Discussed with Dr. Abdi at 1630 who is in agreement with admission. Discussed findings and plan with patient and family, who acknowledge understanding and agreement. Dragon Disclaimer Dragon Disclaimer This electronic medical record was generated, in whole or in part, using a voice recognition dictation system. Departure Departure: Impression: Primary Impression: Altered level of consciousness Additional Impressions: Elevated lactic acid level Headache Marijuana abuse Disposition: ADMITTED INPATIENT (at 1431) Admitting Physician: Brandyn Abdi (accepted admission at 1430) Condition: GUARDED Referrals: PCP,NO (PCP) Critical Care Time Critical care time was 65 minutes exclusive of procedures. Problem Qualifiers KENTON LARSEN MD Jun 26, 2019 14:46
--- NOTE | 2019-06-26 14:52 | RAD ---
EXAM: Head CT without contrast. HISTORY: Code stroke. Altered level of consciousness. TECHNIQUE: Computed tomographic images of the head were obtained without contrast. *One or more of the following individualized dose reduction techniques were utilized for this examination: 1. Automated exposure control. 2. Adjustment of the mA and/or kV according to patient size. 3. Use of iterative reconstruction technique. COMPARISON: 01/22/2017. FINDINGS: There is no acute or subacute extra-axial or intraparenchymal hemorrhage. There is no mass effect or midline shift. There is no hydrocephalus. The putnam-white matter differentiation pattern is intact. There is stable asymmetric soft tissue within the anterior medial superior right orbit, possibly associated with the lacrimal duct and likely of no clinical significance given the absence of interval change control specialist a greater than two-year interval. The mastoid air cells are clear. The visualized paranasal sinuses are unremarkable. There is no calvarial lesion. IMPRESSION: No acute intracranial findings. Findings were discussed with Gloria, a nurse in the ED, at 1440 hours on 06/26/2019. Electronically signed by: Leti Barriga MD (06/26/2019 2:48 PM) [facility] [place]
--- NOTE | 2019-06-26 14:53 | RAD ---
EXAM: Chest, single view. HISTORY: Confusion. COMPARISON: 06/03/2017 FINDINGS: A frontal view of the chest is obtained. There is no infiltrate, pleural effusion or pneumothorax. The heart is normal in size. There is a cardiac pacemaker in expected position. There is advanced degenerative change involving the left shoulder, with associated joint loose bodies. IMPRESSION: No acute pulmonary finding. Electronically signed by: Leti Barriga MD (06/26/2019 2:49 PM) [facility] [place]
[2019-06-26 15:26] LABS: BASO % 1 % (0-3); EOS # 0.1 x10^3/uL (0.0-0.7); EOS % 1 % (0-3); HEMATOCRIT 41.4 % (36.0-47.0); HEMOGLOBIN 13.4 g/dL (12.0-15.5); LYMPH # 1.1 x10^3/uL (1.0-4.8); LYMPH % 15 % (24-48); MEAN CORPUSCULAR HEMOGLOBIN 30 pg (25-35); MEAN CORPUSCULAR HGB CONC 32 g/dL (31-37); MEAN CORPUSCULAR VOLUME 92 fL (79-100); MONO # 0.5 x10^3/uL (0.0-1.1); MONO % 8 % (0-9); NEUT # 5.4 x10^3uL (1.8-7.7); NEUT % 76 % (31-73); PLATELET COUNT 406 x10^3/uL (140-400); RED BLOOD COUNT 4.48 x10^6/uL (3.50-5.40); RED CELL DISTRIBUTION WIDTH 13.9 % (11.5-14.5); WHITE BLOOD COUNT 7.1 x10^3/uL (4.0-11.0)
[2019-06-26 15:40] LABS: CALCIUM 8.9 mg/dL (8.5-10.1); CREATININE 0.8 mg/dL (0.6-1.0); GFR 88.8; POTASSIUM 3.8 mmol/L (3.5-5.1)
[2019-06-26 15:41] LABS: AMPHETAMINE/METHAMPHETAMINE NEG (NEG); BARBITURATES NEG (NEG); BENZODIAZEPINES NEG (NEG); CANNABINOIDS POS (NEG); COCAINE NEG (NEG); METHADONE NEG (NEG); OPIATES NEG (NEG); PHENCYCLIDINE NEG (NEG)
[2019-06-26 15:50] LABS: BACTERIA,URINE 0 /HPF (0-FEW); BILIRUBIN,URINE NEG (NEG); CLARITY,URINE CLEAR; COLOR,URINE YELLOW; GLUCOSE,URINE NEG (NEG); NITRITE,URINE NEG (NEG); RBC,URINE OCC /HPF (0-2); SQUAMOUS EPITHELIAL CELL,UR OCC /LPF; UROBILINOGEN,URINE 0.2 mg/dL (0.2 mg/dL); WBC,URINE RARE /HPF (0-4)
[2019-06-26 15:52] LABS: ALBUMIN 3.3 g/dL (3.4-5.0); ALBUMIN/GLOBULIN RATIO 0.8 (1.0-1.7); TOTAL BILIRUBIN 0.3 mg/dL (0.2-1.0); TOTAL PROTEIN 7.3 g/dL (6.4-8.2)
[2019-06-26] MEDS ORDERED: ONDANSETRON PF 4 MG/2 ML VIAL. ONE (16:25)
[2019-06-26 16:31] LABS: INFLUENZA A PATIENT NEGATIVE (NEGATIVE); INFLUENZA B PATIENT NEGATIVE (NEGATIVE)
[2019-06-26] MEDS ORDERED: KETOROLAC 30 MG/ML VIAL. IVP PRN (18:15)
[2019-06-26 18:42] VITALS: BP 122/72
[2019-06-26] MEDS: IV NORMAL SALINE 1,000ML 1,000 ML IV SCH (19:30)
[2019-06-26] MEDS ORDERED: VANCOMYCIN PER PHARMACY MC PRN (19:30)
--- NOTE | 2019-06-26 19:44 | NUR ---
Pt arrived to unit via EMS cart for admission to ICU bed 4 at 1730. Pt was admitted to Dr. Abdi for possible seizures. Pt's IV was out when she arrived, removed the R-AC IV; intact and no bleeding. New IV started, #22 in right FA. Pt complained of an excruciating headache; Dr. Abdi called for orders. Around 1800, pt's sister called nurse to come into room. Pt was starting up at the ceiling and was smacking her lips rhathymically. When name called, pt looked at me but was not focusing on me and soon looked away. Called pt's name again, she looked at me, seemed to 'snap out of it' and was disoriented for a few moments. Dr. Lomeli called as consult per order from Dr. Abdi and told of incident; he ordered Keppra IV x1 dose and stated he would be in to see pt this evening. Pt's family made aware of visiting hours and encouraged to limit total number of visitors; family verbalized understanding. Bedside handoff was given to NOEMI Hagan.
[2019-06-26] MEDS ORDERED: VANCOMYCIN 2 GM in IV NORMAL SALINE 500ML 500 ML IV ONE ×2 (20:00→22:00)
[2019-06-26] MEDS: ACETAMINOPHEN 500 MG TABLET PO PRN (22:54)
[2019-06-26 23:00] VITALS: BP 117/70
[2019-06-27] VITALS (9 sets, daily range): BP systolic 120–138; BP diastolic 69–95
--- NOTE | 2019-06-27 00:59 | NUR ---
Pharmacy Vancomycin Dosing Note S:Consulted to monitor and dose vancomycin started 06/26/19. O:CAROL JOSHI is a 59 year old F with Empiric, . Height: 5 feet, 6 inches Weight: 77.0 kg [place] Body Weight: 59.30 Adjusted Body Weight: 66.38 Dosing Weight: Actual Other Antibiotics: CEFTRIAXONE LABS: Last BUN: 9 Last Creatinine: 0.8 Creatinine Clearance: 79 Last WBC: 7.1 Last Procalcitonin: Tmax (past 24 hours): Microbiology: I/O: Drug Levels: Last level: on at Last dose given 06/26/19 at 2200 Vancomycin Dosing: Loading Dose: 2000 mg x1 Dosing Weight: Actual Target Trough: 10-20 A: Based on: WT AND CRCL P: 1. Begin Vancomycin 1250 mg IV q12h 2. Follow up Trough level on 06/28/19 at 0930 3. Pharmacy will continue to monitor, follow and adjust therapy as needed. CAITY GENAO RPH, 06/27/19 0100 Signed: 06/27/19 at 0100 by CAITY GENAO RPH PHA
--- NOTE | 2019-06-27 02:01 | EKG ---
[address] [address] Test Date: 2019-06-26 Test Time: 14:15:44 Pat Name: CAROL JOSHI Department: Room: Gender: F Streaming [employer] Specialist: : 1960 Requested By: KENTON LARSEN Order Number: [id number] Reading MD: Measurements Intervals [place] Rate: 82 P: 54 UT: 152 QRS: 49 QRSD: 88 T: 72 QT: 372 QTc: 438 Interpretive Statements SINUS RHYTHM LEFT ATRIAL ABNORMALITY ABNORMAL ECG RI6.01 No previous ECG available for comparison
[2019-06-27] MEDS: IV NORMAL SALINE 1,000ML 1,000 ML IV SCH ×2 (05:00→14:20)
[2019-06-27] MEDS: CLOPIDOGREL BISULFATE 75 MG TABLET PO SCH (08:02)
[2019-06-27] MEDS: METOPROLOL TART IMMED RELEASE 50 MG TABLET PO SCH ×2 (08:02→21:18)
[2019-06-27] MEDS: ASPIRIN ENTERIC COATED 81 MG TABLET.DR. PO SCH (08:02)
[2019-06-27] MEDS: LOSARTAN 50 MG TABLET. PO SCH (08:03)
[2019-06-27] MEDS: amLODIPine BESYLATE 10 MG TABLET PO SCH (08:03)
--- NOTE | 2019-06-27 08:53 | CONS ---
DATE OF CONSULTATION: 06/26/2019 REFERRING PHYSICIAN: Dr. Brandyn Abdi. REASON FOR CONSULTATION: Possible new onset of seizure. HISTORY OF PRESENT ILLNESS: This is a 59-year-old right-handed female, who was admitted to the Emergency Room after she presented with possible new onset of seizure-like activities. According to the patient, she had been doing fine until last night; during sleep, she probably had seizure-like activities. Her found her on the floor having generalized seizure-like activity, described as jerking movements of the upper and lower extremity with complete loss of consciousness, followed by post-event confusion and disorientation. The patient did not recall the events. She did not bite her tongue, or have bowel or bladder incontinence. EMS was activated and found the patient having abnormal movements of the extremities. The speech was slurred. According to the nursing staff, the patient had a brief episode on the floor, described as staring spells that lasted a few seconds. The patient stated she recalled the event, but she was somewhat confused and disoriented. The patient stated she has been drinking vodka; the last drink was a pint of vodka a week ago. She denies drinking alcohol on a daily basis. The patient also complains of severe frontal headaches. She denies nausea, vomiting, neck pain, chest pain, shortness of breath or palpitation, dysarthria or dysphagia. The patient denies any recent head injuries or fall. She denies chills or fever, bowel or bladder incontinence. PAST MEDICAL HISTORY: Significant for coronary artery disease, hypertension, hyperlipidemia, sleep apnea, history of lupus and angina. PAST SURGICAL HISTORY: Status post stent placement x 2 in 2016, status post pacemaker, hysterectomy. SOCIAL HISTORY: The patient is . She denies smoking, but she smoked marijuana almost daily. She drinks alcohol, but the last heavy drinking was a week ago; she denies drinking on a daily basis. FAMILY HISTORY: Mother had coronary artery disease, hypertension, kidney failure, stroke, and congestive heart failure. Father had diabetes mellitus. CURRENT HOME MEDICATIONS: Losartan 100 mg daily, amlodipine 10 mg daily, metoprolol 50 mg b.i.d., Plavix 75 mg daily, aspirin 81 mg daily. ALLERGIES: TICAGRELOR. REVIEW OF SYSTEMS: Ten-point review of system was performed, as mentioned above in the history of present illness. PHYSICAL EXAMINATION: GENERAL: Well-developed, well-nourished female not in acute distress. She weighs 77 kilos. VITAL SIGNS: Blood pressure 123/78, respiratory rate 22, pulse is 86, temperature 99.1, oxygen saturation 100% on room air. HEENT: Normocephalic, atraumatic, otherwise unremarkable. NECK: Supple. Negative for carotid bruit, lymphadenopathy or thyromegaly. LUNGS: Clear to A and P. CARDIOVASCULAR: Regular rate and rhythm, normal S1 and S2. ABDOMEN: Soft. Bowel sounds positive. EXTREMITIES: Negative for cyanosis, clubbing or edema. NEUROLOGICAL EXAMINATION: 1. Mental status. The patient is alert and oriented x 2. The speech is fluent. There is no language dysfunction. Memory, the patient recalls 1/3 after 1 and 3 minutes. Judgment and abstract thinking are normal. The patient denies hallucination or delusion. 2. Cranial nerves, visual burden are full. The pupils are reactive to light and accommodation. The extraocular movements are intact. There is no nystagmus. There is no facial motor or sensory deficit. Hearing is intact bilaterally. The palate elevates symmetrically. Sternocleidomastoid muscles are powerful bilaterally. The patient shrugs her shoulders symmetrically, protrudes her tongue in the midline without fasciculation or atrophy. 3. Motor examination. No focal muscle bulk was seen. The tone is normal. The strength is 5/5 throughout. 4. Sensory examination. Revealed normal pinprick, light touch, vibratory and position senses. Deep tendon reflexes were symmetric and active without pathologic responses. Gait not tested. DIAGNOSTIC DATA: Initial nonenhanced head CT scan revealed no evidence of acute intracranial process. Chest x-ray revealed no evidence of acute cardiopulmonary process. LABORATORY DATA: CBC revealed white blood cells of 7.1 thousand, hemoglobin 13.4, hematocrit 41.4, platelet count 406,000. Chemistry revealed sodium of 141, potassium 3.8, chloride 103, CO2 of 28, BUN 9, creatinine 0.9, glucose 134. Liver enzymes are normal. Alkaline phosphatase is high at 138. Troponin level is 0.02. Urinalysis is negative for urinary tract infections and urine drug screen is positive for marijuana. Alcohol is less than 10. Lactic acid is 1.2. IMPRESSION: 1. Possible new onset of seizure; however, alcohol withdrawal seizure is still a possibility as the last drink was 6 days ago. 2. Multiple medical problems include coronary artery disease, history of hypertension, hyperlipidemia. 3. Marijuana abuse. 4. Sleep apnea. RECOMMENDATIONS: 1. We will start the patient empirically on Keppra; we will start loading dose. 2. We will arrange for electroencephalogram to be done on an outpatient basis. 3. Continue with current management initiated by Dr. Abdi. 4. Marijuana cessation. M Jose Armando PENNINGTON MD DR: RAMSEY/stanley JOB#: [id number] / [id number]
[2019-06-27] MEDS ORDERED: OLMESARTAN MED PO SCH (09:00)
[2019-06-27] MEDS ORDERED: AMLODIPINE BES PO SCH (09:00)
[2019-06-27] MEDS ORDERED: [UNRECOGNIZED DRUG - OTHER] PO SCH (09:00)
[2019-06-27] MEDS: LACTOBACILLUS RHAMNOSUS GG 1 CAPSULE. PO SCH ×2 (09:33→21:17)
[2019-06-27] MEDS ORDERED: VANCOMYCIN 1.25 GM in IV NORMAL SALINE 250ML 250 ML IV SCH (10:00)
--- NOTE | 2019-06-27 14:27 | PN ---
DATE: 06/27/2019 SUBJECTIVE: The patient denies any new medical or neurological complaints; however, she said her mind is not working well, but she has not had any seizure-like activities. OBJECTIVE: GENERAL: Well-developed, well-nourished -[place] female, not in acute distress. VITAL SIGNS: Blood pressure 125/81, respiratory rate 20, pulse is 78, oxygen saturation is 96% on room air, and temperature 98.4. HEENT: Normocephalic, atraumatic, otherwise unremarkable. NECK: Supple. Negative for carotid bruit, lymphadenopathy or thyromegaly. LUNGS: Clear to A and P. CARDIOVASCULAR: Regular rate and rhythm, normal S1, S2. ABDOMEN: Soft. Bowel sounds positive. EXTREMITIES: Negative for cyanosis, clubbing or edema. NEUROLOGICAL EXAM: Mental Status: The patient is alert and oriented x 2. The speech is fluent. There is no language dysfunction. Memory, judgment, and abstracting thinking are fine. The patient denies hallucination or delusion. Cranial nerves are intact. No focal motor or sensory deficit. Deep tendon reflexes were symmetric and hypoactive with absent Achilles responses. Gait not tested. IMPRESSION: 1. New onset of seizure-like activities, etiology uncertain. However, alcohol withdrawal seizure is still a possibility. 2. Multiple medical problems include coronary artery disease, hypertension, hyperlipidemia. 3. Marijuana abuse. 3. Sleep apnea. 4. History of lupus. RECOMMENDATION: 1. Electroencephalogram. 2. Continue with current management initiated by Dr. Abdi. 3. We will hold on anticonvulsant Keppra until the EEG is performed. Should the patient have a witnessed seizure activities, we will restart anticonvulsant. M Jose Armando PENNINGTON MD DR: RAMSEY/stanley JOB#: [id number] / [id number]
--- NOTE | 2019-06-27 16:29 | HP ---
ADMIT DATE: HISTORY OF PRESENT ILLNESS: A 59-year-old female came in through the Emergency Room. The patient was basically found unresponsive in her home and new onset. The patient was found shaking and jerking motion, not responding or talking. The patient came in through the Emergency Room, was basically the same there. The patient had some movement of extremities and did have some slurred speech; however, the patient was admitted for possible new onset of seizure activity, and make further evaluation on her as indicated. PAST MEDICAL HISTORY: Angina, cardiac surgery, coronary catheterization with stents, pacemaker in 2016, anticoagulation therapy, hypertension, sleep apnea, hysterectomy, systemic lupus erythematosus. Medical symptoms of lupus. Influenza and pneumococcal vaccinations are up-to-date. FAMILY HISTORY: Mother with history of coronary artery disease, hypertension, kidney failure, stroke and heart failure. Father with diabetes. ALLERGIES: Adverse reaction to ticagrelor. SOCIAL HISTORY: Denies smoking, alcohol or drug use. Is a full code. REVIEW OF SYSTEMS: The patient presently is alert and denies any headaches, visual changes, blurred vision or photophobia. Denies any focal weakness. Denies chest pain, shortness of breath or abdominal pain. Denies any nausea, vomiting, melena, hematochezia or hematemesis presently. PHYSICAL EXAMINATION: GENERAL: This is a very pleasant -[place] female, who is looking very tired and worn out. VITAL SIGNS: Blood pressure 123/78, respiratory rate 22, pulse 93, temperature 99.9. HEENT: The patient's head was atraumatic, normocephalic. Eyes: PERRLA without jaundice. The mouth and throat were normal. NECK: Supple, without JVD. Carotids without thyromegaly. LUNGS: Diminished, but clear. CARDIOVASCULAR: Regular sinus rhythm, S1, S2, without murmur, rub, thrill, or extra heart sound. ABDOMEN: Soft, nontender. EXTREMITIES: No clubbing, cyanosis, nor edema. NEUROLOGIC: The patient is alert and oriented, presently. Speech is fluent, spontaneous, and appropriate and oriented, presently x 3. The patient's reflexes were basically stable as well as her motor strength. Gait not tested. LABORATORY DATA: White count was unremarkable at 7000, hemoglobin and hematocrit 13 and 41. Labs were basically stable. She did have an elevated carbon monoxide level, placed on oxygen for that. She did not have any saxena red appearance, still under investigation as to her furnace ____ family members who live in the apartment, her house to be evacuated, until this could be evaluated by proper authorities. Otherwise, her labs did show slight elevated blood sugar of 139 and lactic acid 2.1 may have been from seizure activity though and the like there. In any case, influenzae were negative. IMPRESSION: 1. New onset of seizure activity, may be from carbon monoxide poisoning as a possibility. Complete loss of consciousness secondary as noted above. 2. History of coronary artery disease. 3. Use of marijuana. 4. Sleep apnea. PLAN: Continue to monitor and put her on oxygen and is noted to have family check the living quarters for problems with her furnace. CADE WEBER MD DR: ANGE/stanley JOB#: [id number] / [id number]
[2019-06-27] MEDS: ACETAMINOPHEN 500 MG TABLET PO PRN (21:20)
[2019-06-28 00:01] VITALS: BP 119/70
[2019-06-28 05:55] VITALS: BP 120/75
--- NOTE | 2019-06-28 06:00 | NUR ---
Pt back to baseline mentation, A&Ox4. Pt called the non-emergent line for the fire department to check on the others in her apartment complex after it was discovered that she had CO poisoning. Pt slept great during night and asked if she could go home today stating, "I feel much better!"
[2019-06-28 06:40] LABS: BASO # 0.1 x10^3/uL (0.0-0.2); BASO % 1 % (0-3); EOS # 0.1 x10^3/uL (0.0-0.7); EOS % 2 % (0-3); HEMATOCRIT 42.8 % (36.0-47.0); LYMPH # 1.4 x10^3/uL (1.0-4.8); LYMPH % 21 % (24-48); MEAN CORPUSCULAR HEMOGLOBIN 30 pg (25-35); MEAN CORPUSCULAR HGB CONC 33 g/dL (31-37); MEAN CORPUSCULAR VOLUME 92 fL (79-100); MONO # 0.5 x10^3/uL (0.0-1.1); MONO % 7 % (0-9); NEUT # 4.6 x10^3uL (1.8-7.7); NEUT % 70 % (31-73); PLATELET COUNT 417 x10^3/uL (140-400); RED BLOOD COUNT 4.68 x10^6/uL (3.50-5.40); RED CELL DISTRIBUTION WIDTH 13.3 % (11.5-14.5); WHITE BLOOD COUNT 6.6 x10^3/uL (4.0-11.0)
[2019-06-28 06:42] LABS: CALCIUM 8.8 mg/dL (8.5-10.1); CREATININE 0.7 mg/dL (0.6-1.0); GFR 103.6; POTASSIUM 3.7 mmol/L (3.5-5.1)
[2019-06-28] MEDS: CLOPIDOGREL BISULFATE 75 MG TABLET PO SCH (08:17)
[2019-06-28] MEDS: amLODIPine BESYLATE 10 MG TABLET PO SCH (08:17)
[2019-06-28] MEDS: ASPIRIN ENTERIC COATED 81 MG TABLET.DR. PO SCH (08:17)
[2019-06-28] MEDS: METOPROLOL TART IMMED RELEASE 50 MG TABLET PO SCH (08:17)
[2019-06-28] MEDS: LOSARTAN 50 MG TABLET. PO SCH (08:18)
[2019-06-28] MEDS: LACTOBACILLUS RHAMNOSUS GG 1 CAPSULE. PO SCH (08:18)
[2019-06-28] MEDS ORDERED: PIP/TAZO PER PHARMACY MC PRN (10:00)
[2019-06-28] MEDS ORDERED: PIPERACILLIN/TAZOBACTAM 4.5 GM in IV NORMAL SALINE 50ML 50 ML IV SCH (10:00)
[2019-06-28] MEDS ORDERED: VANCOMYCIN PER PHARMACY MC PRN (10:00)
--- NOTE | 2019-06-28 10:50 | NUR ---
Pharmacy Vancomycin Dosing Note S:Consulted to monitor and dose vancomycin started 06/28/19. O:CAROL JOSHI is a 59 year old F with Bacteremia, . Height: 5 feet, 6 inches Weight: 71.3 kg [employer] Body Weight: 59.30 Adjusted Body Weight: 64.10 Dosing Weight: Actual Other Antibiotics: ZOSYN LABS: Last BUN: 6 Last Creatinine: 0.7 Creatinine Clearance: 87.6 Last WBC: 6.6 Last Procalcitonin: Tmax (past 24 hours): Microbiology: I/O: Drug Levels: Last level: on at Last dose given 06/26/19 at 2200 then DC/d - now restarted so we will rebolus Vancomycin Dosing: Loading Dose: 1750 mg x1 Dosing Weight: Actual Target Trough: 15-20 A: Based on: physician request for dosing P: 1. Begin Vancomycin 1750mg bolus then 1000 mg IV q12h 2. Follow up Trough level on 06/29/19 at 2300 3. Pharmacy will continue to monitor, follow and adjust therapy as needed. NEVAEH RIOS, 06/28/19 [id number]
[2019-06-28] MEDS ORDERED: VANCOMYCIN 1.75 GM in IV NORMAL SALINE 500ML 500 ML IV ONE (11:00)
--- NOTE | 2019-06-28 12:07 | NUR ---
Pt upset that her daughter cannot come inside to visit. She came from [place] to visit her mother. PT wanting to leaving because she is so upset. Dr Abdi notified of AMA and pt signed AMA paper. IV removed tip intact and pt waiting for her clothes. Froilan FRANKLIN
[2019-06-28 23:06] LABS: HEMOGLOBIN A1C 6.6 % (4.8-5.6)
--- NOTE | 2019-06-30 16:35 | PN ---
DATE: 06/28/2019 SUBJECTIVE: The patient denies any new medical or neurological complaints. She has not had any recurrent seizures. She complains of intermittent global headaches, but she feels better today than yesterday. One bottle of the blood culture was positive and therefore she was placed on wide range of antibiotic including vancomycin and ____. Blood gas test revealed evidence of high carbon monoxide at 2.5. She denies smoking cigarettes, but she smokes marijuana. OBJECTIVE: GENERAL: Well-developed, well-nourished female, not in acute distress. VITAL SIGNS: Blood pressure 120/75, respiratory rate 20, pulse 73, temperature 98.3, oxygen saturation 100% on 2 liters by nasal cannula. HEENT: Normocephalic, atraumatic, otherwise unremarkable. NECK: Supple. Negative for carotid bruit, lymphadenopathy or thyromegaly. LUNGS: Clear to A and P. CARDIOVASCULAR: Regular rate and rhythm. Normal S1, S2. There is no S3, S4 or murmur. ABDOMEN: Soft. Bowel sounds positive. EXTREMITIES: Negative for cyanosis, clubbing or edema. NEUROLOGICAL EXAM: Normal mental status and intact cranial nerves. There are no focal motor or sensory deficits. Deep tendon reflexes were symmetric and active without pathologic responses. Gait and coordination were normal. LABORATORY DATA: CBC revealed white blood cells of 6600, hemoglobin 14, hematocrit 42.8, platelet count 417,000. Chemistry revealed sodium of 142, potassium 3.7, chloride 105, CO2 of 29, BUN 6, creatinine 0.7, glucose 115 and hemoglobin A1c 6.6. IMPRESSION: 1. Seizure-like activity, etiology uncertain, probably aggravated by high carbon monoxide. 2. Multiple medical problems include coronary artery disease, hypertension, hyperlipidemia, marijuana abuse, and obstructive sleep apnea. RECOMMENDATIONS: 1. Continue with current management initiated by Dr. Abdi. 2. We will arrange for electroencephalogram on an outpatient basis. 3. Marijuana cessation. M Jose Armando PENNINGTON MD DR: RAMSEY/stanley JOB#: [id number] / [id number]
--- NOTE | 2019-07-02 18:07 | DS ---
DATE OF DISCHARGE: 06/28/2019 A 59-year-old -[place] female came to the Emergency Room, was found basically unresponsive at home. She had some jerking motion consistent with possible new onset of seizure activity. The patient was also noted on workup to have an elevated carboxyhemoglobin and there may have been trouble with her furnace and she may have been suffering from carbon monoxide poisoning causing seizure activity. The patient otherwise made good progress with oxygen supplementation. Neurology also saw her. A1c was 6.6. Lactic acid was 2.1 probably from her coccyx syndrome of her carbon monoxide. Influenza was negative. Her other labs are basically unremarkable. The patient made good progress and she discharged herself home a little bit early because her daughter could not visit, her blood sugar was 134. BUN and creatinine were normal. The patient otherwise made good progress during the rest of her hospitalization. IMPRESSION: Carbon monoxide poisoning, seizure activity secondary to carbon monoxide poisoning which was 2.5. Patient has moderate protein malnutrition. The patient was discharged home. Follow up as an outpatient. Her CT of the head was unremarkable as was her chest x-ray as well. PLAN: The patient will be followed up as an outpatient, told to get her furnace checked for any type of problems there and make further evaluation on her as indicated. CADE WEBER MD DR: ANGE/stanley JOB#: [id number] / [id number]
== END 2019-06-28 12:10 | disposition left against medical advice (07) | DRG 918 ==
LOC: ER 13:59 → ICU 16:14
PROVIDERS: ADMIT Family Medicine; ATTEND Family Medicine
DX: T58.91XA Toxic effect of carbon monoxide from unspecified source, accidental (unintentional), initial encounter (principal); F10.239 Alcohol dependence with withdrawal, unspecified; E44.0 Moderate protein-calorie malnutrition; I25.10 Atherosclerotic heart disease of native coronary artery without angina pectoris; I10 Essential (primary) hypertension; F17.210 Nicotine dependence, cigarettes, uncomplicated; F12.10 Cannabis abuse, uncomplicated; M32.9 Systemic lupus erythematosus, unspecified; E78.5 Hyperlipidemia, unspecified; G47.33 Obstructive sleep apnea (adult) (pediatric); I20.9 Angina pectoris, unspecified; R56.9 Unspecified convulsions; Z90.710 Acquired absence of both cervix and uterus; Z95.0 Presence of cardiac pacemaker; Z83.3 Family history of diabetes mellitus; Z82.49 Family history of ischemic heart disease and other diseases of the circulatory system; Z82.3 Family history of stroke; Z88.8 Allergy status to other drugs, medicaments and biological substances; Z68.25 Body mass index [BMI] 25.0-25.9, adult
CPT/HCPCS: 36415; 70450; 71045; 80048; 80053; 80307; 81001; 82375; 82550; 82947; 83036; 83605; 84484; 85025; 85610; 85730; 87040; 87205; 87804; 93005; G0480; J0696; J1885; J1953; J2543; J3370; J7040; 99291-25; J7030

== ENCOUNTER 2019-08-10 08:34 | Emergency (ER) | payer OTHER ==
[~2019-08-10] VITALS: Ht 162.6 cm; Wt 66.0 kg
[2019-08-10 09:25] LABS: BASO # 0.1 x10^3/uL (0.0-0.2); BASO % 1 % (0-3); EOS # 0.1 x10^3/uL (0.0-0.7); EOS % 1 % (0-3); LYMPH # 1.3 x10^3/uL (1.0-4.8); LYMPH % 11 % (24-48); MEAN CORPUSCULAR HEMOGLOBIN 27 pg (25-35); MEAN CORPUSCULAR HGB CONC 32 g/dL (31-37); MEAN CORPUSCULAR VOLUME 85 fL (79-100); MONO # 0.9 x10^3/uL (0.0-1.1); MONO % 8 % (0-9); NEUT # 9.4 x10^3uL (1.8-7.7); NEUT % 79 % (31-73); PLATELET COUNT 464 x10^3/uL (140-400); RED BLOOD COUNT 5.18 x10^6/uL (3.50-5.40); RED CELL DISTRIBUTION WIDTH 14.5 % (11.5-14.5); WHITE BLOOD COUNT 11.8 x10^3/uL (4.0-11.0)
--- NOTE | 2019-08-10 09:31 | RAD ---
PORTABLE CHEST 1V History: Shortness of breath Comparison: June 26, 2019 Findings: Increased linear right basilar opacities. No consolidation. No pleural effusion. Normal heart size. No pneumothorax. 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 Right glenohumeral calcified intra-articular loose bodies. Left-sided pacemaker, unchanged. Impression: 1. Increased linear right basilar opacities, may represent atelectasis. If persistent clinical concern, recommend follow-up. Electronically signed by: Andre Espinoza DO (08/10/2019 9:28 AM) [id number]
[2019-08-10 09:38] LABS: CALCIUM 8.9 mg/dL (8.5-10.1); CREATININE 0.8 mg/dL (0.6-1.0); GFR 88.8
[2019-08-10 09:51] LABS: ALBUMIN 2.6 g/dL (3.4-5.0); ALBUMIN/GLOBULIN RATIO 0.5 (1.0-1.7); TOTAL BILIRUBIN 0.9 mg/dL (0.2-1.0); TOTAL PROTEIN 7.4 g/dL (6.4-8.2)
[2019-08-10 10:14] LABS: BARBITURATES NEG (NEG); BENZODIAZEPINES NEG (NEG); CANNABINOIDS POS (NEG); COCAINE NEG (NEG); METHADONE NEG (NEG); OPIATES NEG (NEG); PHENCYCLIDINE NEG (NEG)
[2019-08-10 10:15] LABS: AMPHETAMINE/METHAMPHETAMINE NEG (NEG)
[2019-08-10 10:24] LABS: BACTERIA,URINE 0 /HPF (0-FEW); BILIRUBIN,URINE NEG (NEG); CLARITY,URINE HAZY; COLOR,URINE YELLOW; GLUCOSE,URINE NEG (NEG); HYALINE CASTS, URINE OCC /HPF; NITRITE,URINE NEG (NEG); SQUAMOUS EPITHELIAL CELL,UR FEW /LPF
--- NOTE | 2019-08-10 10:40 | PHYS DOC ---
Past History Past Medical History: CAD, High Cholesterol, Hypertension, Other Past Surgical History: Hysterectomy, Pacemaker, Other Smoking: Cigarettes, Cigar, Quit Greater Than 1 Year Alcohol Use: Rarely Drug Use: Marijuana General Adult EDM: Chief Complaint: SHORTNESS OF BREATH HPI: HPI: Patient is a 59-year-old female who presented to ER today for evaluation of trouble breathing since last night. Patient denies any cough or fever. Patient did not have any chest pain. Patient denies being exposed to anybody who tested positive for COVID-19. Patient denies any fever. Patient states she cannot breathe. Patient has history of coronary disease, on medication for it. Review of Systems: Review of Systems: Constitutional: Denies fever or chills Eyes: Denies change in visual acuity HENT: Denies nasal congestion or sore throat Respiratory: Denies cough, positive for shortness of breath Cardiovascular: Denies chest pain or edema GI: Denies abdominal pain, nausea, vomiting, bloody stools or diarrhea : Denies dysuria Musculoskeletal: Denies back pain or joint pain Integument: Denies rash Neurologic: Denies headache, focal weakness or sensory changes Endocrine: Denies polyuria or polydipsia Lymphatic: Denies swollen glands Psychiatric: Denies depression or anxiety Heart Score: Risk Factors: Risk Factors: DM, Current or recent (<one month) smoker, HTN, HLP, family history of CAD, obesity. Risk Scores: Score 0 - 3: 2.5% MACE over next 6 weeks - Discharge Home Score 4 - 6: 20.3% MACE over next 6 weeks - Admit for Clinical Observation Score 7 - 10: 72.7% MACE over next 6 weeks - Early Invasive Strategies Current Medications: Current Meds: Current Medications Medications (Trade) Dose Ordered Sig/Jenifer Start Time Stop Time Status Last Admin Dose Admin Iohexol (Omnipaque 350 Mg/ml) 100 ml 1X ONCE 08/10/19 10:45 08/10/19 10:46 UNV Allergies: Allergies: Allergies Coded Allergies Type Severity Reaction Last Updated Verified ticagrelor Allergy Intermediate Rash 06/26/19 No Physical Exam: PE: Constitutional: Well developed, well nourished, no acute distress, non-toxic appearance. [] HENT: Normocephalic, atraumatic, bilateral external ears normal, oropharynx moist, no oral exudates, nose normal. [] Eyes: PERRLA, EOMI, conjunctiva normal, no discharge. [] Neck: Normal range of motion, no tenderness, supple, no stridor. [] Cardiovascular:Heart rate regular rhythm, no murmur [] Lungs & Thorax: Bilateral breath sounds clear to auscultation [] Abdomen: Bowel sounds normal, soft, no tenderness, no masses, no pulsatile masses. [] Skin: Warm, dry, no erythema, no rash. [] Back: No tenderness, no CVA tenderness. [] Extremities: No tenderness, no cyanosis, no clubbing, ROM intact, no edema. [] Neurologic: Alert and oriented X 3, normal motor function, normal sensory function, no focal deficits noted. [] Psychologic: Affect normal, judgement normal, mood normal. [] Current Patient Data: Labs: Laboratory Tests Test 08/10/19 09:08 08/10/19 09:30 White Blood Count 11.8 x10^3/uL (4.0-11.0) H Red Blood Count 5.18 x10^6/uL (3.50-5.40) Hemoglobin 14.0 g/dL (12.0-15.5) Hematocrit 44.0 % (36.0-47.0) Mean Corpuscular Volume 85 fL (79-100) Mean Corpuscular Hemoglobin 27 pg (25-35) Mean Corpuscular Hemoglobin Concent 32 g/dL (31-37) Red Cell Distribution Width 14.5 % (11.5-14.5) Platelet Count 464 x10^3/uL (140-400) H Neutrophils (%) (Auto) 79 % (31-73) H Lymphocytes (%) (Auto) 11 % (24-48) L Monocytes (%) (Auto) 8 % (0-9) Eosinophils (%) (Auto) 1 % (0-3) Basophils (%) (Auto) 1 % (0-3) Neutrophils # (Auto) 9.4 x10^3uL (1.8-7.7) H Lymphocytes # (Auto) 1.3 x10^3/uL (1.0-4.8) Monocytes # (Auto) 0.9 x10^3/uL (0.0-1.1) Eosinophils # (Auto) 0.1 x10^3/uL (0.0-0.7) Basophils # (Auto) 0.1 x10^3/uL (0.0-0.2) Platelet Estimate Pending Sodium Level 139 mmol/L (136-145) Potassium Level 4.0 mmol/L (3.5-5.1) Chloride Level 99 mmol/L (98-107) Carbon Dioxide Level 25 mmol/L (21-32) Anion Gap 15 (6-14) H Blood Urea Nitrogen 13 mg/dL (7-20) Creatinine 0.8 mg/dL (0.6-1.0) Estimated GFR (Cockcroft-Gault) 88.8 BUN/Creatinine Ratio 16 (6-20) Glucose Level 116 mg/dL (70-99) H Calcium Level 8.9 mg/dL (8.5-10.1) Magnesium Level 2.0 mg/dL (1.8-2.4) Total Bilirubin 0.9 mg/dL (0.2-1.0) Aspartate Amino Transferase (AST) 101 U/L (15-37) H Alanine Aminotransferase (ALT) 33 U/L (14-59) Alkaline Phosphatase 501 U/L (46-116) H Troponin I Quantitative < 0.017 ng/mL (0-0.055) QW-Ban-F-Type Natriuretic Peptide 653 pg/mL (0-124) H Total Protein 7.4 g/dL (6.4-8.2) Albumin 2.6 g/dL (3.4-5.0) L Albumin/Globulin Ratio 0.5 (1.0-1.7) L Lipase 309 U/L (73-393) Ethyl Alcohol Level < 10 mg/dL (0-10) Urine Collection Type Unknown Urine Color Yellow Urine Clarity Hazy Urine pH 6.0 Urine Specific [place] 1.025 Urine Protein 100 mg/dl (NEG-TRACE) Urine Glucose (UA) Neg mg/dL (NEG) Urine Ketones (Stick) 80 mg/dL (NEG) Urine Blood Neg (NEG) Urine Nitrite Neg (NEG) Urine Bilirubin Neg (NEG) Urine Urobilinogen Dipstick 1.0 mg/dL (0.2 mg/dL) Urine Leukocyte Esterase Neg (NEG) Urine RBC 1-2 /HPF (0-2) Urine WBC 1-4 /HPF (0-4) Urine Squamous Epithelial Cells Few /LPF Urine Bacteria 0 /HPF (0-FEW) Urine Hyaline Casts Occ /HPF Urine Mucus Mod /LPF Urine Opiates Screen Neg (NEG) Urine Methadone Screen Neg (NEG) Urine Barbiturates Neg (NEG) Urine Phencyclidine Screen Neg (NEG) Urine Amphetamine/Methamphetamine Neg (NEG) Urine Benzodiazepines Screen Neg (NEG) Urine Cocaine Screen Neg (NEG) Urine Cannabinoids Screen Pos (NEG) Urine Ethyl Alcohol Neg (NEG) Vital Signs: Vital Signs Date Time Temp Pulse Resp B/P (MAP) Pulse Ox O2 Delivery O2 Flow Rate FiO2 08/10/19 08:49 98.4 108 20 134/86 (102) 98 Room Air EKG: EKG: EKG was done at 9:00, heart rate of 94 bpm, sinus rhythm, no ST segment elevation. [] Radiology/Procedures: Radiology/Procedures: [][address] [address] IMAGING REPORT Signed PATIENT: CAROL JOSHI ACCOUNT: [id number] : 1960 LOCATION: ER AGE: 59 SEX: F EXAM STATUS: REG ER ORD. PHYSICIAN: CADE SILVA DO REASON: soa PROCEDURE: PORTABLE CHEST 1V PORTABLE CHEST 1V History: Shortness of breath Comparison: June 26, 2019 Findings: Increased linear right basilar opacities. No consolidation. No pleural effusion. Normal heart size. No pneumothorax. 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 Right glenohumeral calcified intra-articular loose bodies. Left-sided pacemaker, unchanged. Impression: 1. Increased linear right basilar opacities, may represent atelectasis. If persistent clinical concern, recommend follow-up. Electronically signed by: Ander Espinoza DO (08/10/2019 9:28 AM) [id number] DICTATED AND SIGNED BY: ANDRE ESPINOZA DO DATE: 08/10/19927 CC: PCP,NO; CADE SILVA DO ~ [address] [address] IMAGING REPORT Signed PATIENT: CAROL JOSHI ACCOUNT: [id number] : 1960 LOCATION: ER AGE: 59 SEX: F EXAM STATUS: REG ER ORD. PHYSICIAN: CADE SILVA DO REASON: soa, chest pain PROCEDURE: CT ANGIOGRAPHY CHEST EXAM: CT Pulmonary Angiogram INDICATION: Shortness of air and chest pain. TECHNIQUE: Multi-detector row images were acquired from the thoracic inlet through the upper abdomen with the use of IV contrast. Sagittal and coronal images were acquired from the transaxial data. MIP images of the pulmonary arteries were obtained. All CT scans performed at this facility utilize dose optimization techniques as appropriate to the exam, including the following: Automated exposure control and adjustment of the mA and/or KV according to patient size (this includes techniques or standardized protocols for targeted exams where dose is indication/reason for exam). IV CONTRAST: Administered COMPARISON: Earlier same day chest x-ray FINDINGS: PULMONARY ARTERIES: Filling defect in the posterior basal right lower lobe pulmonary arterial branch CARDIOVASCULAR: Left chest dual-chamber pacemaker. Dense multivessel coronary calcifications. Aorta is normal caliber. MEDIASTINUM & KIRK: No adenopathy or masses. LUNGS: There is moderate centrilobular pattern emphysema. Numerous bilateral micronodules in the lungs are present in random distribution. Platelike atelectasis in the right middle and lower lobes is also present near the base. PLEURAL SPACE: No pleural effusions or pneumothorax. OSSEOUS & SOFT TISSUE: Unremarkable ABDOMEN: Included upper abdomen shows numerous subtle hypoechoic masses in the liver and a 3 cm mass in the right adrenal gland. The right hepatic lobes segments 7 and 8 are almost fully replaced by hypodense tissue, suspicious for a large tumoral burden. A partially imaged superior pole right renal low-density lesion statistically likely to represent a cyst is also identified. By itself, it requires no additional imaging but additional imaging of the abdomen and pelvis could be helpful in further evaluating extent of suspected disease in the abdominal cavity. IMPRESSION: 1. Small subsegmental pulmonary embolus in the right lower lobe medial basal segment. No findings of right heart strain. 2. Numerous micronodules in the lungs in random distribution in the setting of underlying centrilobular emphysema. Given the additional findings in the upper abdomen in the included field of view, these are of concern for possible micrometastases. Consider abdomen and pelvis CT preferably with IV contrast in further evaluation as clinically warranted. Discussed with Dr. Silva by telephone at 11:43 AM on August 10, 2019 Electronically signed by: Zaid Mcclelland MD (08/10/2019 11:45 AM) [id number] DICTATED AND SIGNED BY: ZAID MCCLELLAND MD DATE: 08/10/19 7105 CC: PCP,NO; CADE SILVA DO ~ [place] [address] IMAGING REPORT Signed PATIENT: CAROL JOSHI ACCOUNT: [id number] : 1960 LOCATION: ER AGE: 59 SEX: F EXAM STATUS: DEP ER ORD. PHYSICIAN: CADE SILVA DO REASON: right side abdominal pain, liver mass PROCEDURE: CT ABDOMEN PELVIS WO CONTRAST CT STUDY OF THE ABDOMEN AND PELVIS WITHOUT CONTRAST CLINICAL INDICATIONS: Right-sided abdominal pain. Liver mass seen on chest CT today. TECHNIQUE: Intravenous contrast was given earlier for a chest CTA. Noncontrast helical CT scanning of the abdomen and pelvis was performed. Without contrast, the sensitivity to detect organ pathology and GI tract pathology is decreased. PQRS compliance Statement One or more of the following individualized dose reduction techniques were utilized for this study: 1. Automated exposure control 2. Adjustment of the mA and/or kV according to patient size 3. Use of iterative reconstruction technique COMPARISON: Abdomen and pelvis CT dated July 14, 2014. FINDINGS: Multiple hypodense lesions of both lobes of the liver are seen. The largest lesion is seen within the right lobe measuring 11 cm in size. The spleen is not enlarged. There is dilatation of the pancreatic duct within the tail. It measures up to 4 mm. This has progressed from the prior study. Overall, the morphologic appearance of the pancreas is unchanged from the prior study. The extra hepatic bile duct is not dilated. The gallbladder is not distended and otherwise appears normal. No left adrenal mass is seen. Again seen is a right adrenal adenoma measuring 10 Hounsfield units and 3 cm in size. It measured 2.3 cm previously. Incidental note is made of an upper pole right renal cyst which was seen previously. There is a smaller subcentimeter cyst of the posterior aspect of the left kidney which is unchanged. No further workup is needed. No hydronephrosis is seen on either side. Urinary bladder floor is indented by the anterior wall of the vaginal vault. This was seen previously. The uterus is surgically absent. No dominant ovarian cyst or mass is seen. No focal aneurysmal dilatation of the abdominal aorta is seen. There is a arvin hepatis lymph node seen on series 2 and image 44 measuring 14 mm. No retroperitoneal lymphadenopathy or pelvic lymphadenopathy is seen. The appendix and terminal ileum are unremarkable. No obstructive bowel pattern is seen. No free air or free fluid or mesenteric edema is seen. Lung base infiltrates are again seen as previously discussed on the chest CT. No lytic process is seen. IMPRESSION: Multiple hepatic masses consistent with hepatic metastasis. Progressive dilatation of the main pancreatic duct within the tail of the pancreas. This could be due to a stricture of the body of the pancreas either inflammatory or neoplastic in nature. Arvin hepatis lymph node. Enlargement of right adrenal adenoma now measuring 3 cm. Electronically signed by: Aly Morrow MD (08/10/2019 12:43 PM) [id number] DICTATED AND SIGNED BY: ALY MORROW MD DATE: 08/10/19 1243 CC: RADHA ALBRIGHT; CADE SILVA DO ~ Course & Med Decision Making: Course & Med Decision Making Pertinent Labs and Imaging studies reviewed. (See chart for details) [] Dragon Disclaimer: Dragon Disclaimer: This electronic medical record was generated, in whole or in part, using a voice recognition dictation system. Departure Departure: Impression: Primary Impression: Pulmonary emboli Additional Impressions: Liver masses Lung mass Disposition: XFER T-TRM HOSP (transferred to [facility], accepted by Dr. Sandoval) Condition: STABLE Referrals: PCPRADHA (PCP) CADE SILVA DO Aug 10, 2019 10:40
[2019-08-10] MEDS ORDERED: IOHEXOL 350 MG/ML 100 ML VIAL. IV ONE (10:45)
[2019-08-10] MEDS ORDERED: CONTRAST GIVEN MC PRN (10:45)
[2019-08-10 11:12] LABS: % BANDS 2 % (0-9); % LYMPHS 7 % (24-48); % MONOS 14 % (0-10); % MYELOS 4 % (0-0); % SEGS 73 % (35-66)
[2019-08-10 11:15] LABS: PLT ESTIMATE INCREASED (ADEQUATE)
--- NOTE | 2019-08-10 11:47 | RAD ---
EXAM: CT Pulmonary Angiogram INDICATION: Shortness of air and chest pain. TECHNIQUE: Multi-detector row images were acquired from the thoracic inlet through the upper abdomen with the use of IV contrast. Sagittal and coronal images were acquired from the transaxial data. MIP images of the pulmonary arteries were obtained. All CT scans performed at this facility utilize dose optimization techniques as appropriate to the exam, including the following: Automated exposure control and adjustment of the mA and/or KV according to patient size (this includes techniques or standardized protocols for targeted exams where dose is indication/reason for exam). IV CONTRAST: Administered COMPARISON: Earlier same day chest x-ray FINDINGS: PULMONARY ARTERIES: Filling defect in the posterior basal right lower lobe pulmonary arterial branch CARDIOVASCULAR: Left chest dual-chamber pacemaker. Dense multivessel coronary calcifications. Aorta is normal caliber. MEDIASTINUM & KIRK: No adenopathy or masses. LUNGS: There is moderate centrilobular pattern emphysema. Numerous bilateral micronodules in the lungs are present in random distribution. Platelike atelectasis in the right middle and lower lobes is also present near the base. PLEURAL SPACE: No pleural effusions or pneumothorax. OSSEOUS & SOFT TISSUE: Unremarkable ABDOMEN: Included upper abdomen shows numerous subtle hypoechoic masses in the liver and a 3 cm mass in the right adrenal gland. The right hepatic lobes segments 7 and 8 are almost fully replaced by hypodense tissue, suspicious for a large tumoral burden. A partially imaged superior pole right renal low-density lesion statistically likely to represent a cyst is also identified. By itself, it requires no additional imaging but additional imaging of the abdomen and pelvis could be helpful in further evaluating extent of suspected disease in the abdominal cavity. IMPRESSION: 1. Small subsegmental pulmonary embolus in the right lower lobe medial basal segment. No findings of right heart strain. 2. Numerous micronodules in the lungs in random distribution in the setting of underlying centrilobular emphysema. Given the additional findings in the upper abdomen in the included field of view, these are of concern for possible micrometastases. Consider abdomen and pelvis CT preferably with IV contrast in further evaluation as clinically warranted. Discussed with Dr. Pickering by telephone at 11:43 AM on August 10, 2019 Electronically signed by: Marcin Mcclelland MD (08/10/2019 11:45 AM) [id number]
[2019-08-10] MEDS ORDERED: ENOXAPARIN ** NOTE DOSE ** SYRINGE SQ ONE (12:00)
[2019-08-10 12:15] VITALS: BP 133/83
--- NOTE | 2019-08-10 12:46 | RAD ---
CT STUDY OF THE ABDOMEN AND PELVIS WITHOUT CONTRAST CLINICAL INDICATIONS: Right-sided abdominal pain. Liver mass seen on chest CT today. TECHNIQUE: Intravenous contrast was given earlier for a chest CTA. Noncontrast helical CT scanning of the abdomen and pelvis was performed. Without contrast, the sensitivity to detect organ pathology and GI tract pathology is decreased. PQRS compliance Statement One or more of the following individualized dose reduction techniques were utilized for this study: 1. Automated exposure control 2. Adjustment of the mA and/or kV according to patient size 3. Use of iterative reconstruction technique COMPARISON: Abdomen and pelvis CT dated July 14, 2014. FINDINGS: Multiple hypodense lesions of both lobes of the liver are seen. The largest lesion is seen within the right lobe measuring 11 cm in size. The spleen is not enlarged. There is dilatation of the pancreatic duct within the tail. It measures up to 4 mm. This has progressed from the prior study. Overall, the morphologic appearance of the pancreas is unchanged from the prior study. The extra hepatic bile duct is not dilated. The gallbladder is not distended and otherwise appears normal. No left adrenal mass is seen. Again seen is a right adrenal adenoma measuring 10 Hounsfield units and 3 cm in size. It measured 2.3 cm previously. Incidental note is made of an upper pole right renal cyst which was seen previously. There is a smaller subcentimeter cyst of the posterior aspect of the left kidney which is unchanged. No further workup is needed. No hydronephrosis is seen on either side. Urinary bladder floor is indented by the anterior wall of the vaginal vault. This was seen previously. The uterus is surgically absent. No dominant ovarian cyst or mass is seen. No focal aneurysmal dilatation of the abdominal aorta is seen. There is a arvin hepatis lymph node seen on series 2 and image 44 measuring 14 mm. No retroperitoneal lymphadenopathy or pelvic lymphadenopathy is seen. The appendix and terminal ileum are unremarkable. No obstructive bowel pattern is seen. No free air or free fluid or mesenteric edema is seen. Lung base infiltrates are again seen as previously discussed on the chest CT. No lytic process is seen. IMPRESSION: Multiple hepatic masses consistent with hepatic metastasis. Progressive dilatation of the main pancreatic duct within the tail of the pancreas. This could be due to a stricture of the body of the pancreas either inflammatory or neoplastic in nature. Arvin hepatis lymph node. Enlargement of right adrenal adenoma now measuring 3 cm. Electronically signed by: Ken Morrow MD (08/10/2019 12:43 PM) [id number]
--- NOTE | 2019-08-10 16:03 | EKG ---
[address] [address] Test Date: 2019-08-10 Test Time: 09:00:58 Pat Name: CAROL JOSHI Department: Room: Gender: F Assurance Manager: : 1960 Requested By: CADE SILVA Order Number: [id number] Reading MD: Gaurang Rose Measurements Intervals [place] Rate: 94 P: 73 TX: 150 QRS: 121 QRSD: 84 T: 53 QT: 374 QTc: 468 Interpretive Statements SINUS RHYTHM Electronically Signed On 08-11-2019 8:18:07 CDT by Gaurang Rose
[2019-08-11] MEDS ORDERED: ASPIRIN ENTERIC COATED 81 MG TABLET.DR. PO SCH (09:00)
[2019-08-11] MEDS ORDERED: [UNRECOGNIZED DRUG - OTHER] PO SCH (09:00)
[2019-08-11] MEDS ORDERED: AMLODIPINE BES PO SCH (09:00)
[2019-08-11] MEDS ORDERED: CLOPIDOGREL BISULFATE 75 MG TABLET PO SCH (09:00)
[2019-08-11] MEDS ORDERED: OLMESARTAN MED PO SCH (09:00)
[2019-08-11] MEDS ORDERED: NEBIVOLOL HCL 10 MG PO SCH (09:00)
== END 2019-08-10 12:40 | disposition short-term general hospital (02) ==
LOC: ER 08:34
DX: I26.99 Other pulmonary embolism without acute cor pulmonale (principal); R16.0 Hepatomegaly, not elsewhere classified; R91.8 Other nonspecific abnormal finding of lung field; I25.10 Atherosclerotic heart disease of native coronary artery without angina pectoris; E78.00 Pure hypercholesterolemia, unspecified; I10 Essential (primary) hypertension; Z95.0 Presence of cardiac pacemaker; Z87.891 Personal history of nicotine dependence; Z88.8 Allergy status to other drugs, medicaments and biological substances
CPT/HCPCS: 36415; 71045; 71275; 74176; 80053; 80307; 81001; 83690; 83735; 83880; 84484; 85007; 85025; 85610; 85730; 93005; 96372; 99285; G0480; J1650; Q9967